=== PATIENT | male | born 1965 | race Caucasian/White ===

== ENCOUNTER 2020-03-31 10:19 | Emergency (ER) | payer OTHER, SELFPAY | END 2020-03-31 10:23 | disposition left against medical advice (07) | PROVIDERS: Emergency Provider Internal Medicine Hematology & Oncology | DX: Z53.21 Procedure and treatment not carried out due to patient leaving prior to being seen by health care provider (principal) | CPT/HCPCS: 99199 ==

== ENCOUNTER 2020-03-31 10:35 | Emergency (ER) | payer OTHER, SELFPAY ==
--- NOTE | ~2020-03-31 | XR_ITS ---
EXAMINATION: XR chest 1V portable DATE: 03/31/2020 12:18 INDICATION: Shortness of breath and cough. TECHNIQUE: A single frontal view of the chest was obtained. COMPARISON: Chest 2 views 07/10/2017, CT abdomen and pelvis 08/27/2016 FINDINGS: The lung volumes are small. There is mild atelectasis at the lung bases. No pleural effusio n or pneumothorax. The heart size is normal. There are prominent paracardial fat pads. Surgical clips in the right upper quadrant are likely from cholecystectomy. IMPRESSION: 1. Small lung volumes with mild atelectasis at the lung bases. Reviewed, dictated and finalized at location A.
--- NOTE | ~2020-03-31 | CT_ITS ---
EXAMINATION: CT abdomen pelvis w con DATE: 03/31/2020 13:26 INDICATION: Abdominal pain. TECHNIQUE: Computed tomography (CT) of the abdomen and pelvis was performed with 100 mL Omnipaque 350 intravenous contrast. Automated exposure control and iterative reconstruction technique were employe d. The dose-length product was 347.09 mGy-cm. COMPARISON: CT abdomen and pelvis 08/27/2016 FINDINGS: The visualized portions of the lung bases demonstrate mild atelectasis. A calcified right h ilar lymph node is consistent with old granulomatous disease. No pleural effusion. The heart size is normal. No pericardial effusion. The liver is normal. There are changes of cholecystectomy. Calcifica tions in the spleen are consistent with old granulomatous disease. The pancreas, adrenal glands, and kidneys are normal. There are bilateral inguinal hernias containing fat. There is diverticulosis of t he colon without evidence of diverticulitis. There are no dilated loops of bowel. The appendix is nor mal. There are no pathologically enlarged lymph nodes. There is no free intraperitoneal fluid. There is mild thoracolumbar spondylosis. IMPRESSION: 1. Bilateral inguinal hernias containing fat. Reviewed, dictated and finalized at location A.
[2020-03-31 11:02] VITALS: BP 149/102; PULSE 95; RESP 22; TEMP 36.6; O2SAT 97
--- NOTE | 2020-03-31 11:40 | ED.GENADULT ---
HPI - General Adult General Chief complaint: Unspecified Stated complaint: bodyaches, sore throat Time Seen by Provider: 03/31/20 11:06 Source: patient Mode of arrival: ambulatory Limitations: no limitations History of Present Illness HPI narrative: This is a 54 year old male that presents to the ER for sore throat x 3 days. Reports generally feeling unwell. Reports a cough and body aches. Reports shortness of breath that is chronic for him due to asthma. Reports history of peptic ulcers and that his stomach has been bothering him for the last couple of months as he has been out of his ulcer medication. Also reports intermittent pain in the right side of his back that radiates into his leg. Denies any recent injury or trauma. Denies fever, chest pain, nausea, vomiting, diarrhea, saddle anesthesia, or bowel/bladder incontinence. Related Data Allergies Allergy/AdvReac Type Severity Reaction Status Date / Time No Known Allergies Allergy Verified 03/31/20 11:16 Review of Systems Review of Systems: Narrative: CONSTITUTIONAL: Denies fever ENT: Reports rhinorrhea, congestion, sore throat CARDIOVASCULAR: Denies chest pain RESPIRATORY: Reports cough and dyspnea. GASTROINTESTINAL: Reports abdominal pain. Denies nausea, vomiting, or diarrhea. GENITOURINARY: Denies dysuria or hematuria. MUSCULOSKELETAL: Reports back pain, joint pain, and myalgia. NEUROLOGIC: Denies numbness, or weakness. All systems reviewed & are unremarkable except as noted in HPI and below PMFSH Past Medical History Medical History (Updated 03/31/20 @ 14:51 by Madeleine Vasquez PA-C) History of asthma History of peptic ulcer disease Family History Family History (Updated 03/19/17 @ 11:22 by DOCTOR UNKNOWN) Father Carcinoma of colon Other Family history of malignant neoplasm Hypertension Social History Social History Smoking status: Never smoker Alcohol intake: current Exam Narrative: Exam Narrative: GENERAL: Well-appearing, well-nourished, and in no acute distress. HEAD: Normocephalic, atraumatic. EYES: EOMI. ENT: Nares clear, no rhinorrhea or epistaxis. Mucous membranes moist. Oropharynx without tonsillar hypertrophy exudate or other lesions. Bilateral TMs pearly maynard non-bulging NECK: Supple. No adenopathy or masses. CHEST: Clear to auscultation. No respiratory distress. No wheezes rales or rhonchi HEART: Regular rate and rhythm. No murmur heard. Normal peripheral pulses. ABDOMEN: Soft, nondistended, normal active bowel sounds. Tender to palpation in the epigastrium, without guarding EXTREMITIES: Normal range of motion. No edema. Strength equal in bilateral lower extremities (5/5) SKIN: Warm, dry, no rash. NEURO: No focal deficits. Alert and oriented x3. PSYCH: Normal mood and affect Course Vital Signs Vital signs: Vital Signs Temperature 97.8 F 03/31/20 11:02 Pulse Rate 95 03/31/20 11:02 Respiratory Rate 22 H 03/31/20 11:02 Blood Pressure 149/102 H 03/31/20 11:02 Pulse Oximetry 97 03/31/20 11:02 Temperature 98.2 F 03/31/20 14:05 Pulse Rate 83 03/31/20 14:05 Respiratory Rate 16 03/31/20 14:05 Blood Pressure 153/90 H 03/31/20 14:05 Pulse Oximetry 99 03/31/20 14:05 Medical Decision Making [place] Narrative Medical decision making narrative: Patient presents to the emergency department with several complaints. Complaining of sore throat, cough, and myalgias. Also was reporting abdominal pain and history of peptic ulcer disease. Also reported right-sided low back/hip pain. Patient's vitals are stable. He is afebrile and nontoxic-appearing. Patient is neurologically intact. CBC and metabolic panel without concerning findings. Lipase is not elevated. CRP and LDH are normal. Lactic acid is not elevated. Strep screen is negative. Chest x-ray is without acute findings. UA without evidence of infection. CT scan of the abdomen and pelvis is without acute findings, shows bilateral inguinal hernias co
[2020-03-31] MEDS: PANTOPRAZOLE SODIUM IV 40 MG VIAL IV PUSH (12:05)
[2020-03-31 12:29] LABS: Basophils Absolute Auto 0.1 K/mm3 (0.0-0.1); Basophils Percent Auto 0.9 % (0.2-1.2); Hematocrit 46.7 % (42.0-52.0); Hemoglobin 15.5 g/dL (14.0-18.0); Immature Granulocyte Absolute 0.07 K/mm3 (0.00-0.031); Immature Granulocyte Percent A 0.9 % (0-0.5); Lymphocytes Absolute Auto 1.58 K/mm3 (0.9-3.2); Lymphocytes Percent Auto 20.5 % (18.3-44.2); Mean Corpuscular HGB Conc 33.2 g/dl (32-36); Mean Corpuscular Hemoglobin 30.7 pg (26-34); Mean Corpuscular Volume 92.5 fl (80-100); Mean Platelet Volume 10.3 fl (7.4-10.4); Monocytes Absolute Auto 0.6 K/mm3 (0.1-0.6); Monocytes Percent Auto 7.2 % (2.6-8.5); Neutrophils Absolute Auto 5.4 K/mm3 (1.3-6.7); Neutrophils Percent Auto 70.5 % (45.5-73.1); Platelet Count Result 267 k/mm3 (150-375); Red Blood Count 5.05 M/mm3 (4.6-6.20); White Blood Count 7.7 K/mm3 (4.5-10.0)
[2020-03-31 12:31] LABS: Add Urine Microscopic? NO; Appearance Urine Clear (Clear); Bilirubin Urine Negative (Negative); Blood Urine Negative (Negative); Color Urine Straw (Yellow); Glucose Urine UA Negative (Negative); Ketones Urine Negative (Negative); Leukocyte Esterase Ur Negative LEU/UL (Negative); Nitrate Urine Negative (Negative); Protein Urine Negative (Negative); Specific Grav Ur 1.013 (1.001-1.035); Urobilinogen Urine Negative mg/dL (<2.0)
[2020-03-31 12:44] LABS: Alanine Aminotransferase 33 U/L (4-50); Albumin Level 4.4 g/dL (3.5-5.1); Alkaline Phosphatase 64 U/L (38-126); Anion Gap 6 mmol/L (8-16); Aspartate Amino Transferase 35 U/L (17-59); Bilirubin,Total 0.6 mg/dL (0.2-1.3); Blood Urea Nitrogen 14 mg/dL (9-20); CRP 1.1 mg/dL (<1.0); Calcium 9.2 mg/dL (8.4-10.2); Carbon Dioxide 30 mmol/L (22-30); Chloride 104 mmol/L (98-107); Estimated CRCL calculation 53 ml/min; Estimated Glomerular Filt Rate > 60; Glucose 151 mg/dL (75-110); Lactate Dehydrogenase 384 U/L (313-618); Lipase 85 U/L (23-300); Potassium 4.2 mmol/L (3.4-5.0); Sodium 140 mmol/L (137-145)
[2020-03-31 13:13] LABS: Lactic Acid Reflex 0.9 mmol/L (0.7-2.1)
[2020-03-31 14:05] VITALS: BP 153/90; PULSE 83; RESP 16; TEMP 36.8; O2SAT 99
[2020-04-01 01:53] LABS: SARS-CoV-2 RNA PCR Negative
== END 2020-03-31 15:12 | disposition home or self-care (01) ==
PROVIDERS: Physician Assistant; Emergency Provider Emergency Medicine
DX: B34.9 Viral infection, unspecified (principal); Z20.828 Contact with and (suspected) exposure to other viral communicable diseases; M25.551 Pain in right hip; K27.9 Peptic ulcer, site unspecified, unspecified as acute or chronic, without hemorrhage or perforation; J45.909 Unspecified asthma, uncomplicated
CPT/HCPCS: 36415; 71045; 74177; 80053; 81003; 82728; 83605; 83615; 83690; 85025; 86140; 87081; 87635; 87880; 96374; 96375; 99284; C9113; C9803; J0131; J3360; Q9967; U0003

== ENCOUNTER 2020-05-22 11:01 | Outpatient (CLI) | payer OTHER, SELFPAY | END 2020-05-22 11:02 | disposition home or self-care (01) | PROVIDERS: Visit Provider Surgery | DX: K40.20 Bilateral inguinal hernia, without obstruction or gangrene, not specified as recurrent (principal) | CPT/HCPCS: 36415; 86850; 86900; 86901 ==

== ENCOUNTER 2020-05-30 00:55 | Outpatient (CLI) | payer OTHER, SELFPAY ==
[2020-05-30 20:51] LABS: SARS-CoV-2 RNA PCR Negative
== END 2020-05-30 00:56 | disposition home or self-care (01) ==
LOC: ANHCOVIDDT 00:55
PROVIDERS: Visit Provider Surgery
DX: Z01.812 Encounter for preprocedural laboratory examination (principal); Z20.828 Contact with and (suspected) exposure to other viral communicable diseases
CPT/HCPCS: 87635; C9803; U0003

== ENCOUNTER 2020-06-01 00:42 | Day surgery (SDC) | payer OTHER, SELFPAY ==
[2020-05-18 15:52] VITALS: BMI 26.9
[2020-06-01] VITALS (8 sets, daily range): BP systolic 102–137; BP diastolic 77–90; PULSE 71–99; RESP 9–18; TEMP 36.3–36.6; O2SAT 92–100
[2020-06-01] MEDS: ACETAMINOPHEN 500 MG TABLET 1000 MG PO (06:28)
[2020-06-01] MEDS: LACTATED RINGERS 1,000 ML 30 ML IV CONT ×2 (06:30→09:39)
[2020-06-01] MEDS: KETOROLAC 15 MG/ML VIAL (*BKC) IV PUSH (06:32)
--- NOTE | 2020-06-01 06:56 | WPDANESEPPF ---
Anes - Initial Pre Proc Eval Procedure: Operation Date: 06/01/20 07:30 Proposed Procedures p Robotic Assisted Inguinal Hernia Repair With Mesh - Sayra Gutierrez MD Date/Time: 06/01/20 06:56 Surgeon: Sayra Gutierrez MD Pre Op Diagnosis: Bilateral Inguinal Hernia Patient Data Age: 54 Gender: M Height: 5 ft Weight: 62.5 kg Last Vital Signs Temp 36.3 C L 06/01/20 06:11 Pulse 78 06/01/20 06:11 Resp 18 06/01/20 06:11 BP 136/90 06/01/20 06:11 Pulse Ox 100 06/01/20 06:11 Allergies Allergy/AdvReac Type Severity Reaction Status Date / Time No Known Allergies Allergy Verified 06/01/20 06:41 Home Medications Medication Instructions Recorded Confirmed Type albuterol sulfate 90 mcg/actuation 1 puff INHALATION Q4H PRN 04/04/20 06/01/20 History aerosol inhaler budesonide-formoterol HFA 160 2 puff INHALATION Q12H 04/04/20 05/18/20 History mcg-4.5 mcg/actuation aerosol inhaler dicyclomine 10 mg PO QID PRN 05/18/20 05/18/20 History omeprazole 40 mg PO DAILY 05/18/20 05/18/20 History sucralfate 1 g PO DAILY 05/18/20 05/18/20 History Patient hx anesthesia problems: none Family hx anesthesia problems: none PMFSH Past Medical History Medical History History of asthma History of peptic ulcer disease Surgical History Surgical History History of laparoscopic cholecystectomy Family History Family History Father Carcinoma of colon Other Family history of malignant neoplasm Hypertension Social History Social History Smoking status: Never smoker Alcohol intake: current Drinks per week: 9 Anes - Eval Final PreProcedure Day of Procedure 06/01/20 06:56 Patient weight: overweight Heart: regular rate and rhythm Lungs: clear to auscultation Airway: Mallampati scale class III Neurological: alert and oriented Last oral intake: >/= 8 hours ASA classification: II Emergent: no Anesthetic plan: proceed Anesthesia type and monitoring: general ETT and standard monitoring Informed Consent: The patient's anesthetic plan and its attendant risks and benefits were discussed with the patient/family/POA. Questions were solicited and answers provided to the satisfaction of the patient/family/POA.
--- NOTE | 2020-06-01 07:03 | PM.IMHP ---
H&P: HPI History of Present Illness Date/Time: 06/01/20 07:03 Chief complaint: Bilateral Inguinal Hernia Narrative: Eusebio Martinez is a 54 year old male that has recently developed pain in his bilateral groins and subsequently noticed inguinal bulges. Symptoms have been intermittent for approximately two years, but have increased in intensity and frequency over the last few months. He denies scrotal swelling or urinary difficulty. He has hx of lap cholecystectomy in 04/2017, but no other abdominal or inguinal surgeries. Review of Systems Review of Systems: All systems reviewed & are unremarkable except as noted in HPI and below PMFSH Past Medical History Medical History History of asthma History of peptic ulcer disease Surgical History Surgical History History of laparoscopic cholecystectomy Family History Family History Father Carcinoma of colon Other Family history of malignant neoplasm Hypertension Social History Social History Smoking status: Never smoker Alcohol intake: current Drinks per week: 9 Meds Home Medications and Allergies Home Medications Medication Instructions Recorded Confirmed Type albuterol sulfate 90 mcg/actuation 1 puff INHALATION Q4H PRN 04/04/20 06/01/20 History aerosol inhaler budesonide-formoterol HFA 160 2 puff INHALATION Q12H 04/04/20 05/18/20 History mcg-4.5 mcg/actuation aerosol inhaler dicyclomine 10 mg PO QID PRN 05/18/20 05/18/20 History omeprazole 40 mg PO DAILY 05/18/20 05/18/20 History sucralfate 1 g PO DAILY 05/18/20 05/18/20 History Allergies Allergy/AdvReac Type Severity Reaction Status Date / Time No Known Allergies Allergy Verified 06/01/20 06:41 Vital Signs Vital Signs - 24 hr 06/01/20 06:11 Temperature 36.3 C L Pulse Rate 78 Respiratory Rate 18 Blood Pressure 136/90 Pulse Oximetry 100 Exam Const: General: cooperative, healthy appearing, no acute distress, alert, awake and Physically active Resp: Effort & Inspection: normal respiratory effort Auscultation: clear to auscultation bilaterally Cardio: Rate: regular rate Rhythm: regular rhythm GI: Inspection: normal to inspection and non-distended GI Palp: Yes Soft to palpation, No Tenderness to palpation present (GI) and No Guarding due to palpation present (GI) Other: bilateral inguinal hernia Assessment and Plan Assessment and plan (1) Inguinal hernia bilateral, non-recurrent: Qualifiers: Obstruction and gangrene presence: without obstruction or gangrene Recurrence: non-recurrent Qualified Code(s): K40.20 - Bilateral inguinal hernia, without obstruction or gangrene, not specified as recurrent Code(s): K40.20 - Bilateral inguinal hernia, without obstruction or gangrene, not specified as recurrent Status: Acute Assessment and Plan: will setup for bilateral inguinal hernia repair c mesh
--- NOTE | 2020-06-01 07:06 | WPDHPUPDATE1 ---
History and Physical Update Update Date/Time: 06/01/20 07:06 History and Physical has been reviewed, including an updated exam of the patient. There are NO changes in the patient's condition. Risks, benefits, and alternatives have been discussed and questions answered. Patient agrees to proceed with procedure.
[2020-06-01] MEDS: ceFAZolin 2 GM/D5W 50 ML 2 GM/50 ML BAG IVPB (07:26)
[2020-06-01] MEDS: BUPIVACAINE/EPINEPHRINE 0.25% 50 ML VIAL 30 ML INFILTRATE (08:03)
--- NOTE | 2020-06-01 10:04 | PM.PROC ---
Procedure Note - Detailed Date of procedure: 06/01/20 Pre-op diagnosis: Bilateral Inguinal Hernia Procedure performed: robotic assisted bilateral inguinal hernia repair with 15 x 10 cm Progrip mesh bilaterally Description of procedure: Patient was brought into the operating room and placed in the supine position. After adequate induction of general anesthesia, the patient was prepped and draped in normal sterile fashion. A time-out was then done to verify the patient's identity, as well as the procedure being performed. Began by making a 8 mm incision in the supraumbilical region, a Veress needle was then placed into the peritoneal cavity. CO2 gas was then insufflated and after adequate pneumoperitoneum was achieved, the Veress needle was removed. I then placed an 8 mm trocar through this incision. I then placed the endoscope through this trocar site and under direct visualization placed 2 further 8 mm ports in the right and left mid abdomen. The [employer] robot was then docked to the 3 trocar sites. I then scrubbed out and went to the robotic console. Upon examining the pelvis, it was noted that the patient had bilateral inguinal hernias. I began by making a preperitoneal flap approximately 6 cm superior to the defect on the right. This flap was carried medially past the umbilical ligaments and laterally to the transversalis. I then began dissection of my medial compartment taking this down to the pubic tubercle. I then began the lateral dissection taking this down to the transversalis fascia. Once these compartments were achieved, I began dissection around the cord structures. It was noted at this point that the patient had a indirect hernia. Patient also had a lipoma the cord. Using careful dissection, was able to reduce the lipoma cord as well separate the indirect hernia off the cord structures. Once this was adequately done, I went ahead and placed a 15 x 10 piece of Pro Manager Access mesh into the abdominal cavity. The mesh was carefully positioned, centering the center of the mesh over the indirect defect. Once this was done, was very satisfied with our tension-free repair. Repeating the procedure on the left, I began by making a preperitoneal flap approximately 6 cm superior to the defect on the left. This flap was carried medially past the umbilical ligaments and laterally to the transversalis. I then began dissection of my medial compartment taking this down to the pubic tubercle. I was able to connect this flap to the repair on the right side. It was noted the patient had a direct hernia on this side. I was able to reduce the hernia and sac from this direct defect. I then began the lateral dissection taking this down to the transversalis fascia. Once these compartments were achieved, I began dissection around the cord structures. It was noted at this point that the patient did not have an indirect hernia. Patient had a lipoma the cord. Using careful dissection, was able to reduce the lipoma cord. Once this was adequately done, I went ahead and placed a 15 x 10 piece of Pro Manager Access mesh into the abdominal cavity. The mesh was carefully positioned, centering the center of the mesh over the indirect defect. Once this was done, was very satisfied with our tension-free repair. I then closed the peritoneal flap with a running 2.0 V Lock suture on both sides. The abdomen was then desufflated, and all ports were removed. All incisions were then closed with the 4.0 monocryl suture. Dermabond was placed on each wound. The patient tolerated the procedure well, was extubated in the operating room postoperatively, and will now be transferred to the recovery room in stable condition. Implants: 15 x 10 progrip mesh x 2 Anesthesia: HALINA Surgeon: Sayra Gutierrez MD Estimated blood loss (mL): 5 Drains: No Packing: No Pathology: none sent Complications: No immediate complications Condition: stable Disposition: PACU Findings: left direct hernia, right indirect hernia
[2020-06-01] MEDS: fentaNYL CITRATE INJ (*CRX) 100 MCG/2 ML VIAL 25 MCG IV PUSH ×4 (10:15→10:28)
[2020-06-01] MEDS: oxyCODONE HCL (*CRX) 5 MG TAB IR PO (11:08)
== END 2020-06-01 11:52 | disposition home or self-care (01) ==
PROVIDERS: Visit Provider Surgery
PROC: 8E0Y4CZ Robotic Assisted Procedure of Lower Extremity, Percutaneous Endoscopic Approach (ICD-10-PCS; CPT 49650; principal; 2020-06-01 07:30)
DX: K40.20 Bilateral inguinal hernia, without obstruction or gangrene, not specified as recurrent (principal); J45.909 Unspecified asthma, uncomplicated; Z87.11 Personal history of peptic ulcer disease
CPT/HCPCS: 49650; S2900; A9270; C1781; J0690; J1100; J1885; J2250; J2405; J2704; J2710; J3010; J7030; J7120

== ENCOUNTER 2020-10-20 07:53 | Emergency (ER) | payer OTHER, SELFPAY ==
--- NOTE | ~2020-10-20 | XR_ITS ---
XR knee LT min 4V 10/20/2020 08:24 INDICATION: Left knee pain PROCEDURE: 4 views left knee COMPARISON: No prior studies for comparison. FINDINGS: Fracture, dislocation or subluxation is not identified. There is prepatellar soft tissue sw elling. No foreign bodies are identified. IMPRESSION: 1: Prepatellar soft tissue swelling. No significant effusion. 2: No acute fracture. Reviewed, dictated and finalized at location B.
[2020-10-20 07:59] VITALS: BP 157/95; PULSE 77; RESP 18; TEMP 36.5; O2SAT 99
[2020-10-20] MEDS: HYDROcodone/acetaminophen (*CRX) 5-325 MG TABLET 1 TAB PO (08:11)
[2020-10-20 08:41] VITALS: TEMP 36.5
[2020-10-20 08:48] LABS: Basophils Absolute Auto 0.1 K/mm3 (0.0-0.1); Basophils Percent Auto 1.2 % (0.2-1.2); Hematocrit 46.8 % (42.0-52.0); Hemoglobin 15.5 g/dL (14.0-18.0); Immature Granulocyte Absolute 0.06 K/mm3 (0.00-0.031); Immature Granulocyte Percent A 0.8 % (0-0.5); Immature Platelet Fraction Pct 6.6 % (0.9-11.2); Lymphocytes Absolute Auto 1.47 K/mm3 (0.9-3.2); Lymphocytes Percent Auto 19.9 % (18.3-44.2); Mean Corpuscular HGB Conc 33.1 g/dl (32-36); Mean Corpuscular Hemoglobin 30.3 pg (26-34); Mean Corpuscular Volume 91.6 fl (80-100); Mean Platelet Volume 10.3 fl (7.4-10.4); Monocytes Absolute Auto 0.7 K/mm3 (0.1-0.6); Monocytes Percent Auto 9.5 % (2.6-8.5); Neutrophils Absolute Auto 5.1 K/mm3 (1.3-6.7); Neutrophils Percent Auto 68.6 % (45.5-73.1); Platelet Count Result 254 k/mm3 (150-375); Red Blood Count 5.11 M/mm3 (4.6-6.20); Red Cell Distribution Width 13.2 % (11.5-14.5); White Blood Count 7.4 K/mm3 (4.5-10.0)
[2020-10-20 08:57] LABS: INR 0.8; Prothrombin Time 11.6 Seconds (11.1-14.7)
[2020-10-20 08:58] LABS: Partial Thromboplastin Time 24.1 SECONDS (22.3-36.8)
[2020-10-20 09:00] VITALS: BP 153/107; PULSE 85; RESP 18; O2SAT 96
[2020-10-20 09:01] LABS: Anion Gap 5 mmol/L (8-16); Blood Urea Nitrogen 17 mg/dL (9-20); Calcium 10.1 mg/dL (8.4-10.2); Carbon Dioxide 32 mmol/L (22-30); Chloride 103 mmol/L (98-107); Estimated CRCL calculation 53 ml/min; Estimated Glomerular Filt Rate > 60; Glucose 95 mg/dL (75-110); Potassium 4.6 mmol/L (3.4-5.0); Sodium 140 mmol/L (137-145)
[2020-10-20 09:51] LABS: Erythrocyte Sedimentation Rate 7 mm/hr (0-20)
[2020-10-20 10:07] VITALS: BP 143/97; PULSE 80; RESP 20; O2SAT 96
--- NOTE | 2020-10-20 10:34 | ED.LOWEXIN ---
HPI - Extremity Injury (Lower) General Chief Complaint: Extremity Injury, Lower Stated Complaint: knee injury Time Seen by Provider: 10/20/20 07:55 Source: RN notes reviewed History of Present Illness HPI Narrative: Patient presents to emergency department from home for left knee swelling. Patient states that he began woke with swelling in the left anterior knee this morning he states pain with bending the knee he denies any known trauma or injury to the knee he denies any fevers or chills or numbness or tingling of the extremities states he has had this happen to previous times in the past 5 years once have not improved with pain medication on his own after week another time he states that fluid was drained and improved after a week Related Data Home Medications Medication Instructions Recorded Confirmed albuterol sulfate 90 mcg/actuation 1 puff INHALATION Q4H PRN 04/04/20 06/14/20 aerosol inhaler budesonide-formoterol HFA 160 2 puff INHALATION Q12H 04/04/20 06/14/20 mcg-4.5 mcg/actuation aerosol inhaler Allergies Allergy/AdvReac Type Severity Reaction Status Date / Time No Known Allergies Allergy Verified 10/20/20 08:02 Review of Systems Review of Systems: Narrative: Gen.: Denies fevers or chills Musculoskeletal: See HPI Neuro: Denies numbness, tingling, weakness Skin: Denies rash Endo: Denies DM PMFSH Past Medical History Medical History History of asthma History of peptic ulcer disease Surgical History Surgical History H/O inguinal hernia repair 06/01/2020: robotic assisted BIH repair with [id number] progrip mesh. History of laparoscopic cholecystectomy Family History Family History Father Carcinoma of colon Other Family history of malignant neoplasm Hypertension Social History Social History Smoking status: Never smoker Alcohol intake: current Drinks per week: 9 Gender identity (if verbalized by the patient): Male Exam Narrative: Exam Narrative: APPEARANCE: No acute distress, nontoxic, resting in bed Eyes: EOMI HEENT: Normocephalic, atraumatic, RESPIRATORY: No respiratory distress MUSCULOSKELETAl: Left anterior knee is tender to palpation with swelling present no ecchymosis or overlying erythema no signs of infection no tenderness of the medial lateral posterior knee pain with flexion greater than 45 degrees no tenderness of the left ankle or hip, dorsalis pedis pulse 2+, neurovascular intact NEURO: Awake and alert. Following commands, speech normal, no focal deficits SKIN:: Warm, dry. Normal Color no rash or lesions Course Course Emergency Course: Reviewed the old records the patient was seen in 2016 for similar at that time he had had prepatella bursitis it had been drained at that time and sent for culture with WBCs seen but no organisms. At that time his knee had been red and warm over the knee Patient is able to get up and ambulate in the ED with no difficulty Discussed with patient results of workup and diagnosis. Discussed need for follow-up with primary care, proper use of medication, and reasons to return to the emergency department. Patient understands and agrees to current treatment plan Vital Signs Vital signs: Vital Signs Temperature 97.7 F 10/20/20 07:59 Pulse Rate 77 10/20/20 07:59 Respiratory Rate 18 10/20/20 07:59 Blood Pressure 157/95 H 10/20/20 07:59 Pulse Oximetry 99 10/20/20 07:59 Temperature 97.7 F 10/20/20 08:41 Pulse Rate 80 10/20/20 10:07 Respiratory Rate 20 10/20/20 10:07 Blood Pressure 143/97 H 10/20/20 10:07 Pulse Oximetry 96 10/20/20 10:07 MDM - Extremity Injury (Lower) MDM Narrative Medical decision making narrative: Patient with prepatellar swelling in ED and there is PERRL isaura
== END 2020-10-20 10:46 | disposition home or self-care (01) ==
PROVIDERS: Emergency Provider Emergency Medicine
DX: M70.42 Prepatellar bursitis, left knee (principal); J45.909 Unspecified asthma, uncomplicated; Z87.11 Personal history of peptic ulcer disease
CPT/HCPCS: 36415; 73564; 80048; 85025; 85055; 85610; 85652; 85730; 86140; 99283; A9270

== ENCOUNTER 2020-12-13 14:48 | Inpatient (IN) | payer OTHER, SELFPAY ==
--- NOTE | ~2020-12-13 | XR_ITS ---
EXAMINATION: XR chest 2V DATE: 12/13/2020 18:14 INDICATION: Cough TECHNIQUE: PA and lateral views of the chest are obtained. COMPARISON: 03/31/2020 FINDINGS: There is mild atelectasis of the lung bases. There is no pleural effusion or pneumothorax. The cardiomediastinal silhouette is normal. There is mild thoracic spondylosis. The nasogastric tube is in the stomach. Cholecystectomy clips are noted. IMPRESSION: 1. Mild atelectasis of the lung bases. Reviewed, dictated and finalized at location A.
--- NOTE | ~2020-12-13 | CT_ITS ---
EXAMINATION: CT abdomen pelvis w con DATE: 12/13/2020 16:59 INDICATION: Lower abdominal pain. Previous hernia repair. TECHNIQUE: Computed tomography (CT) of the abdomen and pelvis was performed without intravenous contr ast. Automated exposure control and iterative reconstruction technique were employed. Exam dose: 454 .72 mGy-cm total exam DLP. COMPARISON: 03/31/2020 CT abdomen pelvis FINDINGS: There are mild patchy infiltrates in the middle lobe and atelectasis at the base of the mid dle lobe, lingula and atelectasis at both lower lobe lung bases. Borderline cardiomegaly. No pericardial or pleural effusion. Very small sliding hiatal hernia. Diffuse hepatic steatosis. No hepatic space-occupying mass lesion is evident. Status post cholecystec chi. No bile duct or pancreatic duct dilatation. No pancreatic mass lesion or calcification. There a re calcified splenic granulomas. No splenomegaly. Normal morphology of the adrenal glands. No renal mass lesion or urinary tract calculus or hydroureteronephrosis. Normal caliber of the abdominal aorta. No intraperitoneal or retroperitoneal or pelvic mass lesion or adenopathy or ascites. Mild prostate enlargement. The urinary bladder is unremarkable. Bilateral fat-containing hernias, right larger than left. There is relative distention of the duodenum and jejunum, with air-fluid levels, which may represent mild adynamic ileus or enteritis, less likely partial small bowel obstruction. The ileum is of normal caliber. Normal appendix. Diverticulosis of sigmoid and descending colon; no CT evidence of diverticulitis. Old healed posterior right 10th rib fracture. No suspicious osteolytic or osteoblastic lesions. IMPRESSION: Bibasilar infiltrate and/atelectasis Borderline cardiomegaly Very small sliding hiatal hernia Mild distention of the duodenum and jejunum, which may be secondary to mild adynamic ileus or enterit is or less likely partial small bowel obstruction Diverticulosis of the left colon; no CT evidence of diverticulitis Hepatic steatosis Status post cholecystectomy Reviewed, dictated and finalized at [facility]. Reviewed, dictated and finalized at location B. IMPRESSION: Bibasilar infiltrate and/atelectasis Borderline cardiomegaly Very small sliding hiatal hernia Mild distention of the duodenum and jejunum, which may be secondary to mild augusto namic ileus or enteritis or less likely partial small bowel obstruction Diverticulosis of the left colon; no CT evidence of diverticulitis Hepatic steatosis Status post cholecystectomy
--- NOTE | ~2020-12-13 | XR_ITS ---
EXAMINATION: XR abdomen obstructive series DATE: 12/14/2020 05:35 INDICATION: Bowel obstruction. TECHNIQUE: Upright and supine views of the abdomen were obtained. COMPARISON: Abdomen radiograph 12/13/2020, CT abdomen and pelvis 12/13/2020 FINDINGS: There are no dilated loops of bowel. There is a small volume of stool in colon. No free int raperitoneal gas. The nasogastric tube tip is in the stomach. Surgical clips in the right upper quadr ant are likely from cholecystectomy. IMPRESSION: 1. Normal bowel gas pattern. Reviewed, dictated and finalized at location A.
--- NOTE | ~2020-12-13 | XR_ITS ---
EXAMINATION: XR sm bowel follow through WS EXAM DATE: 12/14/2020 11:23 INDICATION: Possible small bowel obstruction. IMPRESSION: Abnormal CT, possible small bowel obstruction. TECHNIQUE: Schedule Planning Manager radiograph was acquired. Omnipaque/water soluble solution administered for small rodriguez wel exam performed by radiologist Joe Johnson through nasogastric tube in place on patient arrival. Pulsed dose reduction fluoroscopy was used with fluoroscopic time of 0.1 minutes. The DAP for this p rocedure was 16 Gycm2. A total of 13 images obtained for the exam. Correlation is made to CT from ye ster. FINDINGS: Ileal and jejunal fold patterns are normal. There is no small bowel wall thickening or m ass effect displacing small bowel. There are no intraluminal filling defects identified. There is n o small bowel dilation. Terminal ileum is normal in appearance. Contrast reached the colon between 1 and 1.5 hours. IMPRESSION: Normal small bowel exam. Reviewed, dictated and finalized at location A. IMPRESSION: Abnormal CT, possible small bowel obstruction. TECHNIQUE: Schedule Planning Manager radiograph was acquired. Omnipaque/water soluble solution adm inistered for small bowel exam performed by radiologist Joe Johnson through betty ogastric tube in place on patient arrival. Pulsed dose reduction fluoroscopy w as used with fluoroscopic time of 0.1 minutes. The DAP for this procedure was 16 Gycm2. A total of 13 images obtained for the exam. Correlation is made to C T from yesterday. FINDINGS: Ileal and jejunal fold patterns are normal. There is no small vilma l wall thickening or mass effect displacing small bowel. There are no intralum inal filling defects identified. There is no small bowel dilation. Terminal i leum is normal in appearance. Contrast reached the colon between 1 and 1.5 yonathan rs. IMPRESSION: Normal small bowel exam.
--- NOTE | ~2020-12-13 | XR_ITS ---
EXAMINATION: XR abdomen NG/feed tube insert INDICATION: Nasogastric tube placement TECHNIQUE: Portable AP KUB-NG at 1811 hours COMPARISON: CT from today FINDINGS: The nasogastric tube is in the stomach. Contrast from earlier CT examination partially opac ifies the urinary tract. The bowel gas pattern is nonspecific. IMPRESSION: 1. Nasogastric tube in the stomach. Reviewed, dictated and finalized at location A.
[2020-12-13 15:08] VITALS: BP 111/83; PULSE 101; RESP 19; TEMP 36.3; O2SAT 100
[2020-12-13 15:18] LABS: Basophils Absolute Auto 0.1 K/mm3 (0.0-0.1); Basophils Percent Auto 0.9 % (0.2-1.2); Hematocrit 43.6 % (42.0-52.0); Hemoglobin 14.8 g/dL (14.0-18.0); Immature Granulocyte Absolute 0.12 K/mm3 (0.00-0.031); Immature Granulocyte Percent A 1.3 % (0-0.5); Lymphocytes Absolute Auto 2.28 K/mm3 (0.9-3.2); Lymphocytes Percent Auto 24.4 % (18.3-44.2); Mean Corpuscular HGB Conc 33.9 g/dl (32-36); Mean Corpuscular Hemoglobin 30.6 pg (26-34); Mean Corpuscular Volume 90.1 fl (80-100); Mean Platelet Volume 9.2 fl (7.4-10.4); Monocytes Absolute Auto 0.6 K/mm3 (0.1-0.6); Monocytes Percent Auto 6.7 % (2.6-8.5); Neutrophils Absolute Auto 6.2 K/mm3 (1.3-6.7); Neutrophils Percent Auto 66.7 % (45.5-73.1); Platelet Count Result 300 k/mm3 (150-375); Red Blood Count 4.84 M/mm3 (4.6-6.20); White Blood Count 9.4 K/mm3 (4.5-10.0)
[2020-12-13 15:29] LABS: Alanine Aminotransferase 34 U/L (4-50); Albumin Level 4.6 g/dL (3.5-5.1); Alkaline Phosphatase 57 U/L (38-126); Anion Gap 10 mmol/L (8-16); Aspartate Amino Transferase 37 U/L (17-59); Bilirubin,Total 0.4 mg/dL (0.2-1.3); Blood Urea Nitrogen 11 mg/dL (9-20); Calcium 9.7 mg/dL (8.4-10.2); Carbon Dioxide 23 mmol/L (22-30); Chloride 104 mmol/L (98-107); Estimated CRCL calculation 60 ml/min; Estimated Glomerular Filt Rate > 60; Glucose 68 mg/dL (75-110); Lipase 400 U/L (23-300); Potassium 4.1 mmol/L (3.4-5.0); Sodium 137 mmol/L (137-145)
[2020-12-13] MEDS: SODIUM CHLORIDE 0.9% IV 1,000 ML 999 ML IV CONT (16:07)
[2020-12-13] MEDS: ONDANSETRON INJ 4 MG/2 ML VIAL IV PUSH (16:08)
[2020-12-13] MEDS: MORPHINE SULFATE (*CRX) 4 MG/ML INJ IV PUSH (16:13)
[2020-12-13 16:18] LABS: Add Urine Microscopic? NO; Appearance Urine Clear (Clear); Bilirubin Urine Negative (Negative); Blood Urine Negative (Negative); Color Urine Colorless (Yellow); Glucose Urine UA Negative (Negative); Ketones Urine Negative (Negative); Leukocyte Esterase Ur Negative LEU/UL (Negative); Nitrate Urine Negative (Negative); Protein Urine Negative (Negative); Urobilinogen Urine Negative mg/dL (<2.0)
[2020-12-13 16:29] LABS: Specific Grav Ur 1.003 (1.001-1.035)
--- NOTE | 2020-12-13 17:21 | ED.GENADULT ---
HPI - General Adult General Chief complaint: Abdominal Pain Stated complaint: left hernia pain Time Seen by Provider: 12/13/20 15:26 Source: RN notes reviewed History of Present Illness HPI narrative: Patient presents emergency department from home for abdominal pain. Patient states symptoms been ongoing for the past 4 days and progressively worsening abdomen pain is located diffusely throughout the abdomen with increased pain in the bilateral lower abdomen. Associated with nausea and vomiting. Denies any fevers or chills, chest pain shortness of breath or any other symptoms. States he had a hernia repair last year by Dr. Gutierrez in a call the office and was referred to the ER for further evaluation Related Data Home Medications Medication Instructions Recorded Confirmed albuterol sulfate 90 mcg/actuation 1 puff INHALATION Q4H PRN 04/04/20 06/14/20 aerosol inhaler budesonide-formoterol HFA 160 2 puff INHALATION Q12H 04/04/20 06/14/20 mcg-4.5 mcg/actuation aerosol inhaler Allergies Allergy/AdvReac Type Severity Reaction Status Date / Time No Known Allergies Allergy Verified 12/13/20 15:25 Review of Systems Review of Systems: Narrative: Gen.: Denies fevers or chills ENT: Denies congestion Respiratory: Denies shortness of breath or cough CV: Denies chest pain or palpitations GI: See HPI denies burning, urgency, frequency or hematuria Musculoskeletal: Denies back pain or muscle pain Neuro: Denies numbness, tingling, weakness or focal weakness Skin: Denies rash Except as documented, all other systems reviewed and negative PMFSH Past Medical History Medical History History of asthma History of peptic ulcer disease Surgical History Surgical History H/O inguinal hernia repair 06/01/2020: robotic assisted BIH repair with [id number] progrip mesh. History of laparoscopic cholecystectomy Family History Family History Father Carcinoma of colon Other Family history of malignant neoplasm Hypertension Social History Social History Smoking status: Never smoker Alcohol intake: current Drinks per week: 9 Gender identity (if verbalized by the patient): Male Exam Narrative: Exam Narrative: APPEARANCE: No acute distress, nontoxic, resting in bed HEENT: Normocephalic, atraumatic, OMM RESPIRATORY: No respiratory distress, clear to auscultation bilaterally with no rhonchi wheezing or rales CARDIOVASCULAR: RRR s murmur ABDOMINAL: Mildly distended and soft, nondistended diffusely tender palpation with increased tenderness in right lower quadrant left lower quadrant no rebound or guarding MUSCULOSKELETAl: Moves all extremities. No clubbing, cyanosis or edema. NEURO: Awake and alert. Following commands, speech normal, no focal deficits SKIN:: Warm, dry. Normal Color PSYCHIATRIC: Normal affect/mood Course Course Emergency Course: Called discussed with Dr. Nina presentation work-up at this time recommends admission to his service with to [facility]. Request consult to internal medicine for evaluation of the atelectasis versus pneumonia Discussed with patient a CT scan patient states he has had a mild cough for the past 2 days denies any fevers or chills or shortness of breath. The patient has had both Covid vaccinations with last vaccine given 2 and half weeks ago Discussed with HAO Vasquez for Dr. Dunham regarding consult. At this time with no white count or fever will hold antibiotics obtain 2 view chest x-ray Discussed with patient and family results of workup and diagnosis. Discussed need for admission. Patient and family understand and agree to current treatment plan Vital Signs Vital signs: Vital Signs Temperature 97.3 F L 12/13/20 15:08 Pulse Rate 101 H 12/13/20 15:0
[2020-12-13 18:08] VITALS: BP 153/83; PULSE 98; RESP 22; TEMP 36.9; O2SAT 98
[2020-12-13] MEDS: PANTOPRAZOLE SODIUM IV 40 MG VIAL IV PUSH ×2 (18:32→21:55)
--- NOTE | 2020-12-13 19:15 | ADMGEN ---
This patient, Eusebio Martinez, was admitted to Medical Room 340-01. Patient/family oriented to hospital policies and general routines including ID bracelet, bed and alarms, visiting hours, pain management, procedures, bathroom and other care routines, personal items, smoking policy, room service/diet, and visiting hours. Information on how to activate the Rapid Response Team has been discussed. Patient/Family are encouraged to report perceived risks to care and to ask questions if they do not understand what they are told or what they should do.
[2020-12-13] MEDS: SODIUM CHLORIDE 0.9% IV 1,000 ML 125 ML IV CONT (19:22)
[2020-12-13 20:08] VITALS: BP 150/94; PULSE 85; RESP 18; TEMP 36.1; O2SAT 94
[2020-12-13 20:10] VITALS: BMI 28.1
[2020-12-13 20:22] LABS: Lactic Acid Reflex 1.4 mmol/L (0.7-2.1)
--- NOTE | 2020-12-13 20:34 | PM.IMCN ---
Assessment and Plan Assessment and plan (1) Partial obstruction of small intestine: Code(s): K56.600 - Partial intestinal obstruction, unspecified as to cause Status: Acute (2) History of asthma: Code(s): Z87.09 - Personal history of other diseases of the respiratory system Status: Acute (3) Inguinal hernia bilateral, non-recurrent: Qualifiers: Obstruction and gangrene presence: without obstruction or gangrene Recurrence: non-recurrent Qualified Code(s): K40.20 - Bilateral inguinal hernia, without obstruction or gangrene, not specified as recurrent Code(s): K40.20 - Bilateral inguinal hernia, without obstruction or gangrene, not specified as recurrent Status: Acute (4) Abnormal chest xray: Code(s): R93.89 - Abnormal findings on diagnostic imaging of other specified body structures Status: Acute (5) Atelectasis of both lungs: Code(s): J98.11 - Atelectasis Status: Acute Additional Plan # Abdominal pain/nausea, vomting: CT abdomen with mild distesio of duodenum and jejnum likely secondary to mild adynamic ielus or enteritis. or partial SBO. pain is disproportionately high compared to the ct findings. willl place on PPI prophylaxis for possible duodenitis. will need serial evaluation. NG tube in place for decompression per general surgery. NPO> ivf. and iv pain medicaitons, iv zofran for nausea. lipase is eleated 400 (2-00) potentially be acute pancreatitis. for this also, will continue npo, iv pain mediatois iv hydration. monitor lipase level in am. # Acute migraine attack: will place on iv pain medications. he uses prn otc in the past. # abnormal CXR: cT with atelecatic changes. questionable infiltrate. howver patient with no cough, sob. wbc count is normal. i suspect these are atelectatic changes due to his abdominal problem. will watch off antibiotics and follow the clinical course. mointor wbc count or any fever. # hypoglycemia: mild. monitor accuchecks. # DVT proh: PAS boots. Thank you for the consult.w ill follow along with you. HPI Data of Consult Consult date: 12/13/20 Requesting Physician: Too Nina MD Primary Care Provider: MAIL ORDER BILLER PHYSICIAN Consult Narrative Reason for consult: abormal ches x ray Narrative: Eusebio Martinez is a 55 year old male who presents to the ED with abdominal pain that started since past few days. its more on ht left side of his abdomen. progressively got worse with nausea, no vomiting. he has bee having bm regularly. he reports he does get constiapted but his last BM was this mornin. he had left hernia repair by Dr. Douglass a year aggo. no feer, chills. he has asthma ad gets cough on and off bu not curretly. no sob, chest pian compalinted as well. he is currenlty having migraine attack which he does have history of. he takes otc migraine tablet fro this pain. His CT scan showed: There are mild patchy infiltrates in the middle lobe and atelectasis at the base of the middle lobe, lingula and atelectasis at both lower lobe lung bases. Borderline cardiomegaly. No pericardial or pleural effusion. Very small sliding hiatal hernia. Diffuse hepatic steatosis. No hepatic space-occupying mass lesion is evident. Status post cholecystectomy. No bile duct or pancreatic duct dilatation. No pancreatic mass lesion or calcification. There are calcified splenic granulomas. No splenomegaly. Normal morphology of the adrenal glands. No renal mass lesion or urinary tract calculus or hydroureteronephrosis. Normal caliber of the abdominal aorta. No intraperitoneal or retroperitoneal or pelvic mass lesion or adenopathy or ascites. Mild prostate enlargement. The urinary bladder is unremarkable. Bilateral fat-containing hernias, right larger than left. There is relative distention of the duodenum and jejunum, with air-fluid levels, which may represent mild adynamic ileus or enteritis, less likely partial small bowel obstruction. The ileum is of normal adeline
[2020-12-13] MEDS: MORPHINE SULFATE (*CRX) 2 MG/ML INJ IV PUSH (21:55)
[2020-12-13] MEDS: ACETAMINOPHEN 500 MG TABLET BY MOUTH (22:19)
[2020-12-13] MEDS: PHENOL/SOD PHENO SPRAY CHERRY (*BKC) 1 SPRAY MUCOUS MEM (22:20)
[2020-12-13 22:40] VITALS: PULSE 79; RESP 20; O2SAT 94
[2020-12-14] MEDS: SODIUM CHLORIDE 0.9% IV 1,000 ML 125 ML IV CONT (03:41)
[2020-12-14 05:54] LABS: Basophils Absolute Auto 0.1 K/mm3 (0.0-0.1); Basophils Percent Auto 0.9 % (0.2-1.2); Hematocrit 40.9 % (42.0-52.0); Hemoglobin 13.3 g/dL (14.0-18.0); Immature Granulocyte Absolute 0.07 K/mm3 (0.00-0.031); Immature Granulocyte Percent A 0.9 % (0-0.5); Lymphocytes Absolute Auto 1.75 K/mm3 (0.9-3.2); Lymphocytes Percent Auto 22.9 % (18.3-44.2); Mean Corpuscular HGB Conc 32.5 g/dl (32-36); Mean Corpuscular Hemoglobin 30.4 pg (26-34); Mean Corpuscular Volume 93.6 fl (80-100); Mean Platelet Volume 9.5 fl (7.4-10.4); Monocytes Absolute Auto 0.6 K/mm3 (0.1-0.6); Monocytes Percent Auto 7.9 % (2.6-8.5); Neutrophils Absolute Auto 5.1 K/mm3 (1.3-6.7); Neutrophils Percent Auto 67.4 % (45.5-73.1); Platelet Count Result 239 k/mm3 (150-375); Red Blood Count 4.37 M/mm3 (4.6-6.20); Red Cell Distribution Width 12.4 % (11.5-14.5); White Blood Count 7.6 K/mm3 (4.5-10.0)
[2020-12-14 06:09] LABS: Alanine Aminotransferase 27 U/L (4-50); Albumin Level 3.6 g/dL (3.5-5.1); Alkaline Phosphatase 52 U/L (38-126); Anion Gap 6 mmol/L (8-16); Aspartate Amino Transferase 28 U/L (17-59); Bilirubin,Total 0.5 mg/dL (0.2-1.3); Blood Urea Nitrogen 12 mg/dL (9-20); Calcium 8.4 mg/dL (8.4-10.2); Carbon Dioxide 24 mmol/L (22-30); Chloride 109 mmol/L (98-107); Estimated CRCL calculation 59 ml/min; Estimated Glomerular Filt Rate > 60; Glucose 80 mg/dL (75-110); Potassium 4.2 mmol/L (3.4-5.0); Sodium 139 mmol/L (137-145)
[2020-12-14 06:29] VITALS: BP 150/89; PULSE 79; RESP 17; TEMP 36.1; O2SAT 97
--- NOTE | 2020-12-14 08:59 | PM.IMHP ---
H&P: HPI History of Present Illness Date/Time: 12/14/20 08:59 Chief Complaint: Abdominal pain, nausea, and diarrhea Narrative: This is a 55-year-old male with a history of asthma, who presented to the emergency department with complaints of left-sided abdominal pain x 3-4 days. His surgical history includes a laparoscopic robotic assisted bilateral inguinal hernia repair in May of 2020, and a laparoscopic cholecystectomy. The patient reports having abdominal pain for the last 3-4 days in the left side that was intermittent and mild in nature. He reports having difficulty laying flat due to his nausea. He was not vomiting, but was concerned he would vomit if he were to lie flat. No fever or chills. Due to the persistent abdominal pain, he presented to the emergency department for further evaluation. CT scan of the abdomen and pelvis in the ER showed mild distention of the duodenum and jejunum which may be secondary to a mild adynamic ileus or enteritis, and less likely a partial small-bowel obstruction. Incidentally noted was bibasilar infiltrate and/or atelectasis, borderline cardiomegaly, very small sliding hiatal hernia, diverticulosis, and hepatic steatosis. Labs were unremarkable with a white blood cell count that was normal. Lipase was barely elevated at 400. CRP was 2.0. ED physician contacted our service due to the CT findings of an ileus versus enteritis versus partial small bowel obstruction. An NG tube was placed and the patient was made NPO. He was admitted to our service. Hospitalist was consulted due to the findings of atelectasis versus infiltrates on the CT scan. The patient is now seen on the medical floor. His main complaint is a migraine that he has been experiencing for the past 6-7 hours. He reports that he gets these daily and typically takes [id number] medication. He reports over the last 3-4 days the abdominal pain has been associated with nausea and liquid stools. He reports less than 5 stools daily. He reports difficulty with having a bowel movement, but has been able to go. No changes in the color of his stools and no blood noted. He denies ever having a bowel obstruction in the past. Denies recent travel or anyone else with similar symptoms. This morning, he denies any flatus. He reports his abdominal pain has improved. His last bowel movement was yesterday morning and liquid. No other complaints at this time. Review of Systems Review of Systems: All systems reviewed & are unremarkable except as noted in HPI and below Constitutional: Constitutional: Reports as per HPI, Denies chills, Denies fatigue and Denies fever(s) Eyes: Eyes: Reports no additional eye complaints and Denies change in vision ENT: Reports system reviewed and no additional complaints, except as documented, Reports Normal hearing present and Denies dizziness Cardiovascular: Cardiovascular: Reports no additional cardiovascular complaints, Denies chest pain, Denies leg edema and Denies dyspnea Respiratory: Respiratory: Reports no additional respiratory complaints, Denies cough and Denies dyspnea Gastrointestinal: Gastrointestinal: Reports as per HPI, Reports no additional gastrointestinal complaints, Reports abdominal pain (left sided abd pain ), Denies bloating, Reports change in stool character, Reports diarrhea, Reports nausea and Denies vomiting Genitourinary: Genitourinary: Denies hematuria and Denies dysuria Musculoskeletal: Musculoskeletal: Denies abnormal gait, Denies deformity, Denies joint swelling, Denies numbness and Denies tingling Integumentary/Breasts: Skin/Breast: Denies wounds and Denies jaundice Neurologic: Reports system reviewed and no additional complaints, except as documented, Reports Normal hearing present, Denies abnormal gait, Denies dizziness, Denies focal weakness, Denies numbness and Denies tingling Psychiatric: Psychiatric: Denies anxiety and Denies depression [facility] Past Medical History Medical Histo
[2020-12-14] MEDS: ALBUTEROL SULFATE (*SP) AEROSOL 1 PUFF INHALATION (09:17)
[2020-12-14] MEDS: PANTOPRAZOLE SODIUM IV 40 MG VIAL IV PUSH ×2 (09:18→20:46)
--- NOTE | 2020-12-14 10:17 | P.PNIM_ITS ---
Progress Note: A&P Assessment and Plan (1) Partial obstruction of small intestine: Code(s): K56.600 - Partial intestinal obstruction, unspecified as to cause Status: Acute Assessment and Plan: * Ct noted: Mild distention of the duodenum and jejunum, which may be secondary to mild adynamic ileus or enteritis or less likely partial small bowel obstruction * NG Placed to LIMS: clear stomach contents * General surgery consulted thank you for your recommendations * Small bowel follow through ordered * NPO diet for now * Morphine 2mg IV Q4hr and tylenol 1000mg IV Q6hr PRN for pain * Hydration: NS 125ml/hr IV * Protonix 40mg IV Q12hr * Zofran 4mg IV Q4hr PRN for nausea * Trend labs and vital signs for signs of infection (2) History of asthma: Code(s): Z87.09 - Personal history of other diseases of the respiratory system Status: Acute Assessment and Plan: * History of asthma * Continue Symbicort 2 puff q 12 and Albuterol 1 puff q4hr PRN * Trend lung sounds (3) Inguinal hernia bilateral, non-recurrent: Qualifiers: Obstruction and gangrene presence: without obstruction or gangrene Recurrence: non-recurrent Qualified Code(s): K40.20 - Bilateral inguinal hernia, without obstruction or gangrene, not specified as recurrent Code(s): K40.20 - Bilateral inguinal hernia, without obstruction or gangrene, not specified as recurrent Status: Acute Assessment and Plan: * Hernia repair last year by Dr. Gutierrez * No palpable hernia noted on exam * CT shows a small inguinal hernia (4) Migraine: Qualifiers: Migraine type: unspecified Status migrainosus presence: without status migrainosus Intractability: not intractable Qualified Code(s): G43.909 - Migraine, unspecified, not intractable, without status migrainosus Code(s): G43.909 - Migraine, unspecified, not intractable, without status migrainosus Status: Acute Assessment and Plan: * Patient complains of headache * He contributes to the morphine * Tylenol IV 100mg ordered * Trend pain * adjust medications as needed. (5) Atelectasis of both lungs: Code(s): J98.11 - Atelectasis Status: Acute Assessment and Plan: Chest xray shows: Mild atelectasis of the lung bases * Chest ct shows possible infiltrate * No complaints of shortness of breath * Patient does have a cough, but nothing that is not normal per the patient * WBC 7.6, temp 36.1C * Trend WBC, and temperatures * Blood cultures pending * Will continue to hold antibiotics for now. (6) Abnormal chest xray: Code(s): R93.89 - Abnormal findings on diagnostic imaging of other specified body structures Status: Acute Assessment and Plan: * Chest xray shows: Mild atelectasis of the lung bases * Chest ct shows possible infiltrate * No complaints of shortness of breath * Patient does have a cough, but nothing that is not normal per the patient * WBC 7.6, temp 36.1C * Trend WBC, and temperatures * Blood cultures pending * Will continue to hold antibiotics for now. Time Spent With Patient Time with patient: 25 - 35 minutes Subjective Date/time seen: 12/14/20 10:17 patient is a 55-year-old male with past medical history of asthma and peptic ulcer disease who to presented to the ED last night for evaluation of severe abdominal pain. X-ray and CT showed possible bowel obstr
--- NOTE | 2020-12-14 10:17 | PM.IMPN ---
Progress Note: A&P Assessment and Plan (1) Partial obstruction of small intestine: Code(s): K56.600 - Partial intestinal obstruction, unspecified as to cause Status: Acute Assessment and Plan: Ct noted: Mild distention of the duodenum and jejunum, which may be secondary to mild adynamic ileus or enteritis or less likely partial small bowel obstruction NG Placed to LIMS: clear stomach contents General surgery consulted thank you for your recommendations Small bowel follow through ordered NPO diet for now Morphine 2mg IV Q4hr and tylenol 1000mg IV Q6hr PRN for pain Hydration: NS 125ml/hr IV Protonix 40mg IV Q12hr Zofran 4mg IV Q4hr PRN for nausea Trend labs and vital signs for signs of infection (2) History of asthma: Code(s): Z87.09 - Personal history of other diseases of the respiratory system Status: Acute Assessment and Plan: History of asthma Continue Symbicort 2 puff q 12 and Albuterol 1 puff q4hr PRN Trend lung sounds (3) Inguinal hernia bilateral, non-recurrent: Qualifiers: Obstruction and gangrene presence: without obstruction or gangrene Recurrence: non-recurrent Qualified Code(s): K40.20 - Bilateral inguinal hernia, without obstruction or gangrene, not specified as recurrent Code(s): K40.20 - Bilateral inguinal hernia, without obstruction or gangrene, not specified as recurrent Status: Acute Assessment and Plan: Hernia repair last year by Dr. Gutierrez No palpable hernia noted on exam CT shows a small inguinal hernia (4) Migraine: Qualifiers: Migraine type: unspecified Status migrainosus presence: without status migrainosus Intractability: not intractable Qualified Code(s): G43.909 - Migraine, unspecified, not intractable, without status migrainosus Code(s): G43.909 - Migraine, unspecified, not intractable, without status migrainosus Status: Acute Assessment and Plan: Patient complains of headache He contributes to the morphine Tylenol IV 100mg ordered Trend pain adjust medications as needed. (5) Atelectasis of both lungs: Code(s): J98.11 - Atelectasis Status: Acute Assessment and Plan: Chest xray shows: Mild atelectasis of the lung bases Chest ct shows possible infiltrate No complaints of shortness of breath Patient does have a cough, but nothing that is not normal per the patient WBC 7.6, temp 36.1C Trend WBC, and temperatures Blood cultures pending Will continue to hold antibiotics for now. (6) Abnormal chest xray: Code(s): R93.89 - Abnormal findings on diagnostic imaging of other specified body structures Status: Acute Assessment and Plan: Chest xray shows: Mild atelectasis of the lung bases Chest ct shows possible infiltrate No complaints of shortness of breath Patient does have a cough, but nothing that is not normal per the patient WBC 7.6, temp 36.1C Trend WBC, and temperatures Blood cultures pending Will continue to hold antibiotics for now. Time Spent With Patient Time with patient: 25 - 35 minutes Subjective Date/time seen: 12/14/20 10:17 patient is a 55-year-old male with past medical history of asthma and peptic ulcer disease who to presented to the ED last night for evaluation of severe abdominal pain. X-ray and CT showed possible bowel obstruction. today patient seems a little agitated and would like to know when General surgery was coming to see him. General surgery is right behind me. Explained to patient the plan of care a bowel follow-through to see if the patient has an obstruction. Patient does have a history of hernia repair which could contribute to the questionable obstruction. Patient states that he is having severe back pain which he rates a 10/10 which is contributing to the lack of movement due to the NG tube. Explained the patient t
[2020-12-14 11:43] VITALS: O2SAT 94
[2020-12-14 13:51] VITALS: BP 148/82; PULSE 93; RESP 16; TEMP 35.8; O2SAT 96
[2020-12-14] MEDS: HYDROcodone/acetaminophen (*CRX) 5-325 MG TABLET 1 TAB PO (15:28)
[2020-12-14 21:38] VITALS: BP 109/65; PULSE 75; RESP 18; TEMP 36.7; O2SAT 97
[2020-12-15] MEDS: SODIUM CHLORIDE 0.9% IV 1,000 ML 75 ML IV CONT (00:23)
[2020-12-15 06:21] LABS: Hematocrit 46.5 % (42.0-52.0); Hemoglobin 15.1 g/dL (14.0-18.0); Mean Corpuscular HGB Conc 32.5 g/dl (32-36); Mean Corpuscular Hemoglobin 30.3 pg (26-34); Mean Corpuscular Volume 93.2 fl (80-100); Mean Platelet Volume 9.8 fl (7.4-10.4); Platelet Count Result 267 k/mm3 (150-375); Red Blood Count 4.99 M/mm3 (4.6-6.20); Red Cell Distribution Width 12.3 % (11.5-14.5)
[2020-12-15 06:36] LABS: Anion Gap 7 mmol/L (8-16); Blood Urea Nitrogen 8 mg/dL (9-20); Calcium 9.1 mg/dL (8.4-10.2); Carbon Dioxide 27 mmol/L (22-30); Chloride 106 mmol/L (98-107); Estimated CRCL calculation 59 ml/min; Estimated Glomerular Filt Rate > 60; Glucose 99 mg/dL (75-110); Potassium 4.1 mmol/L (3.4-5.0); Sodium 140 mmol/L (137-145)
--- NOTE | 2020-12-15 07:58 | PM.DS ---
DS: Admitting Diagnosis Admitting Diagnosis Admitting Diagnosis: Gastroenteritis versus ileus DS: Discharge Diagnosis Discharge Diagnosis (1) Partial obstruction of small intestine: Onset Date: Unknown Code(s): K56.600 - Partial intestinal obstruction, unspecified as to cause Status: Acute Assessment and Plan: Patient has symptoms for couple days before he came in. Please see history and physical. Patient's ileus resolved fairly quickly with an NG tube and he had a small-bowel follow-through during this admission which showed no obstruction and dye within the colon within our half. This is normal transit time period there are no abnormal loops of small bowel on the small-bowel follow-through. Patient's diet was gradually advanced and he will go on a low-fiber diet for 1 week following admission and then return to his calorie limited diet to try to lose weight. Goal weight will be normal BMI between 20 and 25. (2) Migraine: Onset Date: Unknown Qualifiers: Intractability: not intractable Migraine type: unspecified Status migrainosus presence: without status migrainosus Qualified Code(s): G43.909 - Migraine, unspecified, not intractable, without status migrainosus Code(s): G43.909 - Migraine, unspecified, not intractable, without status migrainosus Status: Acute Assessment and Plan: Apparently patient periodically has these. He has medication at home for p.r.n. use. He will follow up with his PCP if this continues to be a problem. (3) History of asthma: Onset Date: Unknown Code(s): Z87.09 - Personal history of other diseases of the respiratory system Status: Acute Assessment and Plan: Patient has a history of this. He has appropriate inhalers to help with this. (4) BMI 28.0-28.9,adult: Onset Date: Unknown Code(s): Z68.28 - Body mass index [BMI] 28.0-28.9, adult Status: Acute Assessment and Plan: Patient states he realized he was a little bit overweight and he has been trying to start a walking program and he will be watching his calories after he goes back to his normal diet. (5) Atelectasis of both lungs: Onset Date: ~11/2020 Code(s): J98.11 - Atelectasis Status: Acute Assessment and Plan: This was noted on the patient's CT scan and chest x-ray. Incentive spirometry was ordered and used during admission. In the machine was sent home with the patient use encouraged to use this for about another 2-3 days. DS: Summary Hospital Course Reason for hospitalization: Nausea and vomiting, suspected ileus or gastroenteritis Hospital Course: Patient had uneventful hospital course. He had an NG tube overnight after admission. Since his abdominal film the day following admission showed no dilated loops of small bowel we proceeded to a small-bowel follow-through is Gastrografin study. Dye went through to the colon within an hour half which is normal transit time. There were no dilated loops of small bowel on the study. Therefore the NG tube was removed and he was started on a clear liquid diet. The day following his admission he was raised to a full liquid diet for breakfast and then tolerated a low-fiber diet at lunch. Therefore he is discharged at this time with plans for follow-up as needed. Had trouble with a migraine during his admission see below. We appreciate evaluation of the medical service during his admission. Status at Discharge Functional status at discharge: independent ambulation Overall status at discharge: patient is back to baseline Time Spent with Patient Time attestation: Total time spent providing and/or coordinating discharge services: Time spent: Less than 30 minutes Specific discharge activities: Dietitian consult was obtained so that he could have information on a low-fiber diet that he will follow for the 1st week after discharge. He will then resume a calorie limited diet to try to l
[2020-12-15 08:30] VITALS: BP 162/98; PULSE 87; RESP 18; TEMP 36.3; O2SAT 98
--- NOTE | 2020-12-15 09:39 | P.PNIM_ITS ---
Progress Note: A&P Assessment and Plan (1) Partial obstruction of small intestine: Onset Date: Unknown Code(s): K56.600 - Partial intestinal obstruction, unspecified as to cause Status: Acute Assessment and Plan: * Ct noted: Mild distention of the duodenum and jejunum, which may be secondary to mild adynamic ileus or enteritis or less likely partial small bowel obstr uction * NG Placed to LIMS: clear stomach contents * General surgery to manage and to discharge * Small bowel follow through showed no obstruction * Diet per surgery (2) History of asthma: Onset Date: Unknown Code(s): Z87.09 - Personal history of other diseases of the respiratory system Status: Acute Assessment and Plan: * History of asthma * Continue Symbicort 2 puff q 12 and Albuterol 1 puff q4hr PRN (3) Inguinal hernia bilateral, non-recurrent: Qualifiers: Obstruction and gangrene presence: without obstruction or gangrene Recurrence: non-recurrent Qualified Code(s): K40.20 - Bilateral inguinal hernia, without obstruction or gangrene, not specified as recurrent Code(s): K40.20 - Bilateral inguinal hernia, without obstruction or gangrene, not specified as recurrent Status: Resolved Assessment and Plan: * Hernia repair last year by Dr. Gutierrez * No palpable hernia noted on exam * CT shows a small inguinal hernia (4) Migraine: Onset Date: Unknown Qualifiers: Migraine type: unspecified Status migrainosus presence: without status migrainosus Intractability: not intractable Qualified Code(s): G43.909 - Migraine, unspecified, not intractable, without status migrainosus Code(s): G43.909 - Migraine, unspecified, not intractable, without status migrainosus Status: Acute Assessment and Plan: * Patient complains of headache * He contributes to the morphine * [place] added in the afternoon * Trend pain * adjust medications as needed. (5) Atelectasis of both lungs: Onset Date: ~11/2020 Code(s): J98.11 - Atelectasis Status: Acute Assessment and Plan: Chest xray shows: Mild atelectasis of the lung bases * Chest ct shows possible infiltrate * No complaints of shortness of breath * Patient does have a cough, but nothing that is not normal per the patient * WBC 8.0, temp 36.3C * Trend WBC, and temperatures * Blood cultures pending * Will continue to hold antibiotics for now. (6) Abnormal chest xray: Code(s): R93.89 - Abnormal findings on diagnostic imaging of other specified body structures Status: Acute Assessment and Plan: * Chest xray shows: Mild atelectasis of the lung bases * Chest ct shows possible infiltrate * No complaints of shortness of breath * Patient does have a cough, but nothing that is not normal per the patient Time Spent With Patient Time with patient: 15 - 25 minutes Subjective Date/time seen: 12/15/20 09:39 patient is a 55-year-old male with past medical history of asthma and peptic ulcer disease who to presented to the ED last night for evaluation of severe abdominal pain. X-ray and CT showed possible bowel obstruction. Further x- rays show that there was no bowel obstruction present. went to see the patient this morning patient was walking in the halls requesting to further his diet. Instructed patient the General surgery was the admitting provider. Bjorn
--- NOTE | 2020-12-15 09:39 | PM.IMPN ---
Progress Note: A&P Assessment and Plan (1) Partial obstruction of small intestine: Onset Date: Unknown Code(s): K56.600 - Partial intestinal obstruction, unspecified as to cause Status: Acute Assessment and Plan: Ct noted: Mild distention of the duodenum and jejunum, which may be secondary to mild adynamic ileus or enteritis or less likely partial small bowel obstruction NG Placed to LIMS: clear stomach contents General surgery to manage and to discharge Small bowel follow through showed no obstruction Diet per surgery (2) History of asthma: Onset Date: Unknown Code(s): Z87.09 - Personal history of other diseases of the respiratory system Status: Acute Assessment and Plan: History of asthma Continue Symbicort 2 puff q 12 and Albuterol 1 puff q4hr PRN (3) Inguinal hernia bilateral, non-recurrent: Qualifiers: Obstruction and gangrene presence: without obstruction or gangrene Recurrence: non-recurrent Qualified Code(s): K40.20 - Bilateral inguinal hernia, without obstruction or gangrene, not specified as recurrent Code(s): K40.20 - Bilateral inguinal hernia, without obstruction or gangrene, not specified as recurrent Status: Resolved Assessment and Plan: Hernia repair last year by Dr. Gutierrez No palpable hernia noted on exam CT shows a small inguinal hernia (4) Migraine: Onset Date: Unknown Qualifiers: Migraine type: unspecified Status migrainosus presence: without status migrainosus Intractability: not intractable Qualified Code(s): G43.909 - Migraine, unspecified, not intractable, without status migrainosus Code(s): G43.909 - Migraine, unspecified, not intractable, without status migrainosus Status: Acute Assessment and Plan: Patient complains of headache He contributes to the morphine [place] added in the afternoon Trend pain adjust medications as needed. (5) Atelectasis of both lungs: Onset Date: ~11/2020 Code(s): J98.11 - Atelectasis Status: Acute Assessment and Plan: Chest xray shows: Mild atelectasis of the lung bases Chest ct shows possible infiltrate No complaints of shortness of breath Patient does have a cough, but nothing that is not normal per the patient WBC 8.0, temp 36.3C Trend WBC, and temperatures Blood cultures pending Will continue to hold antibiotics for now. (6) Abnormal chest xray: Code(s): R93.89 - Abnormal findings on diagnostic imaging of other specified body structures Status: Acute Assessment and Plan: Chest xray shows: Mild atelectasis of the lung bases Chest ct shows possible infiltrate No complaints of shortness of breath Patient does have a cough, but nothing that is not normal per the patient Time Spent With Patient Time with patient: 15 - 25 minutes Subjective Date/time seen: 12/15/20 09:39 patient is a 55-year-old male with past medical history of asthma and peptic ulcer disease who to presented to the ED last night for evaluation of severe abdominal pain. X-ray and CT showed possible bowel obstruction. Further x-rays show that there was no bowel obstruction present. went to see the patient this morning patient was walking in the halls requesting to further his diet. Instructed patient the General surgery was the admitting provider. Patient stated that he was feeling a lot better. Patient denied headache stating that that was better. He did have concern about his asthma however he said that that is controlled with albuterol. Patient did state that he he travels back and forth from [place] to here to many times the year. He also stated that it was hard for him to get his medications due to the cost however he does get his medications. patient also stated this is pretty much normal for him. Instructed him to follow-up with
--- NOTE | 2020-12-15 12:49 | PCNSR ---
On 12/15/20, the student,Lea Moy, provided care and completed [facility] documentation on this patient. I have reviewed the student's documentation and agree with the findings.
== END 2020-12-15 11:26 | disposition home or self-care (01) | DRG 247 ==
LOC: ANHED 15:40 → ANH3MED 18:29
PROVIDERS: Nurse Practitioner; Admitting Provider Surgery; Emergency Provider Emergency Medicine; Visit Provider Surgery
DX: K56.600 Partial intestinal obstruction, unspecified as to cause (principal); J98.11 Atelectasis; J45.909 Unspecified asthma, uncomplicated; G43.909 Migraine, unspecified, not intractable, without status migrainosus; K40.20 Bilateral inguinal hernia, without obstruction or gangrene, not specified as recurrent; R93.89 Abnormal findings on diagnostic imaging of other specified body structures; E16.2 Hypoglycemia, unspecified; E66.3 Overweight; Z68.28 Body mass index [BMI] 28.0-28.9, adult; Z79.899 Other long term (current) drug therapy; Z87.11 Personal history of peptic ulcer disease
CPT/HCPCS: 36415; 71046; 74019; 74177; 74250; 80048; 80053; 81003; 83605; 83690; 85025; 85027; 87040; 94640; 96361; 96374; 96375; 96376; 99285; A9270; C9113; G0378; G0379; J0131; J2270; J2405; J7030; Q9967

== ENCOUNTER 2022-09-25 07:08 | Emergency (ER) | payer OTHER, SELFPAY ==
[2022-09-25 07:12] VITALS: BP 158/98; PULSE 88; RESP 18; TEMP 36.4; O2SAT 98
--- NOTE | 2022-09-25 07:54 | ED.GENADULT ---
HPI - General Adult General Chief complaint: Back Pain/Injury Stated complaint: BACK PAIN Time Seen by Provider: 09/25/22 07:09 History of Present Illness HPI narrative: 56-year-old male presenting to the emergency department for evaluation of right lower back pain. Patient states he was doing some lifting yesterday when he felt acute onset of right posterior back pain. Patient denies any associated numbness or weakness. Patient did not take anything for the pain control. Patient denies any prior history of kidney stone. Patient denies any hematuria. Patient does have a previous history of and gastric ulcers. Related Data Home Medications Medication Instructions Recorded Confirmed albuterol sulfate 90 mcg/actuation 1 puff inhalation Q4H PRN 04/04/20 03/05/22 aerosol inhaler Shortness Of Breath budesonide-formoterol HFA 160 2 puff inhalation Q12H 04/04/20 03/05/22 mcg-4.5 mcg/actuation aerosol inhaler (Symbicort) Tylenol PM 500 mg BYMOUTH DAILY PRN Headache 12/13/20 03/05/22 Allergies Allergy/AdvReac Type Severity Reaction Status Date / Time No Known Allergies Allergy Verified 09/25/22 07:22 Review of Systems Review of Systems: CONSTITUTIONAL: Denies fever, chills, or sweats. EYES: Denies visual changes, redness, or discharge. ENT: Denies rhinorrhea, congestion, sore throat, or otalgia. CARDIOVASCULAR: Denies chest pain, palpitations, or edema. RESPIRATORY: Denies cough or dyspnea. GASTROINTESTINAL: Denies abdominal pain, nausea, vomiting, or diarrhea. GENITOURINARY: Denies dysuria or hematuria. SKIN: Denies rash or itching. MUSCULOSKELETAL: See HPI NEUROLOGIC: Denies headache, numbness, or weakness. [facility] Past Medical History Medical History (Updated 09/25/22 @ 09:06 by Johnson Grier MD) History of asthma (Unknown) History of peptic ulcer disease Stroke Surgical History Surgical History (Updated 03/05/22 @ 13:17 by Rachel Montez CMA) H/O inguinal hernia repair 06/01/2020: robotic assisted BIH repair with [id number] progrip mesh. History of laparoscopic cholecystectomy Family History Family History Father Carcinoma of colon Other Family history of malignant neoplasm Hypertension Social History Social History Smoking status: Never smoker Alcohol intake: current Drinks per week: 14 Substance use: never Living arrangements: alone Additional living arrangements comments: Plans to move to [place] Occupation/Education: unemployed Gender identity (if verbalized by the patient): Male Spiritual care concerns: No Exam Narrative: APPEARANCE: Well appearing, no pain, no distress, well-nourished. HEAD: normocephalic, atraumatic. EYES: PERRLA/EOMI, conjunctivae clear. NOSE: Normal no drainage NECK: Supple. No adenopathy, no masses. RESPIRATORY: Airway patent, respirations nonlabored. Clear to auscultation bilaterally, no rales, rhonchi, wheezing. CARDIOVASCULAR: Regular rate and rhythm without murmurs rubs or gallops. ABDOMINAL: Soft, nontender, nondistended, normal bowel sounds. Some left CVA tenderness to palpation, mild left lower quadrant tenderness to palpation-patient reports this is not new MUSCULOSKELETAL: Moves all extremities. Strength/ROM intact, No edema, No calf tenderness. NEURO: Alert. Cranial nerves II through XII intact. Grossly intact SKIN: Warm, dry. Normal Color Course Course Emergency Course: 56-year-old male with right back pain. UA was ordered to evaluate for hematuria for possibility of kidney stone. UA was negative. Patient states he is still having some right lower quadrant pain but declined any additional work-up for this. Patient states this is chronic for him. Patient declined any Flexeril for pain control. Patient states he will have close follow-up with his primary care physician. Vital Signs Vital signs:
[2022-09-25 08:10] LABS: Appearance Urine Clear (Clear); Bilirubin Urine Negative (Negative); Blood Urine Negative (Negative); Color Urine Yellow (Yellow); Glucose Urine UA Negative (Negative); Ketones Urine Negative (Negative); Leukocyte Esterase Ur Negative LEU/UL (Negative); Nitrate Urine Negative (Negative); Protein Urine Negative (Negative); Specific Grav Ur 1.007 (1.001-1.035); Urobilinogen Urine 0.2 mg/dL (<2.0)
[2022-09-25 08:46] VITALS: BP 134/76; PULSE 82; RESP 18; O2SAT 99
[2022-09-25 08:46] LABS: Add Urine Microscopic? NO
[2022-09-25 09:23] VITALS: BP 132/70; PULSE 88; RESP 16; O2SAT 98
== END 2022-09-25 09:24 | disposition home or self-care (01) ==
PROVIDERS: Emergency Provider Emergency Medicine
DX: M54.50 Low back pain, unspecified (principal); J45.909 Unspecified asthma, uncomplicated; Z86.73 Personal history of transient ischemic attack (TIA), and cerebral infarction without residual deficits
CPT/HCPCS: 81003; 99283

== ENCOUNTER 2023-07-07 05:46 | Emergency (ER) | payer OTHER, SELFPAY ==
--- NOTE | ~2023-07-07 | XR_ITS ---
Left Knee Technique: AP, lateral, and sunrise views were obtained. Clinical History: Pain COMPARISON: 10/20/2020 Findings: No fracture or dislocation is seen. Osseous alignment is anatomic. Joint spaces are preserv ed without degenerative or erosive change. There is suggestion of ill definition of the distal queta ceps tendon and possible joint effusion. Impression: No osseous or articular abnormality. Poor definition of the distal quadriceps tendon with possible joint effusion. Correlate clinically fo r distal quadriceps tendon injury. If this is of clinical concern, consider follow-up MR to further e valuate. Reviewed, dictated and finalized at location . [employer] Impression: No osseous or articular abnormality. Poor definition of the distal quadriceps tendon with possible joint effusion. C orrelate clinically for distal quadriceps tendon injury. If this is of clinical concern, consider follow-up MR to further evaluate.
[2023-07-07 05:45] VITALS: BP 148/94; PULSE 95; RESP 20; TEMP 36.9; O2SAT 98
[2023-07-07] MEDS: ACETAMINOPHEN 500 MG TABLET 1000 MG PO (06:09)
[2023-07-07] MEDS: KETOROLAC 30 MG/ML VIAL (*BKC) IM (06:10)
--- NOTE | 2023-07-07 06:22 | ED.EXTPRO ---
HPI - Extremity Problem General Chief complaint: Extremity Problem,Nontraumatic Stated complaint: leg pain History of Present Illness HPI Narrative: This is a 57-year-old male, with history of hypertension, brought in by EMS for left knee pain. The patient states he has had episodes of left knee pain with prolonged walking. This morning, he developed 6/10 knee pain, radiating to the left foreleg. He denies fevers, chills or recent trauma. He states pain in the foreleg has since resolved. Related Data Home Medications Medication Instructions Recorded Confirmed albuterol sulfate 90 mcg/actuation 1 puff inhalation Q4H PRN 04/04/20 03/05/22 aerosol inhaler Shortness Of Breath budesonide-formoterol HFA 160 2 puff inhalation Q12H 04/04/20 03/05/22 mcg-4.5 mcg/actuation aerosol inhaler (Symbicort) Tylenol PM 500 mg BYMOUTH DAILY PRN Headache 12/13/20 03/05/22 Allergies Allergy/AdvReac Type Severity Reaction Status Date / Time No Known Allergies Allergy Verified 09/25/22 07:22 Review of Systems Review of Systems: CONSTITUTIONAL: Denies fever, chills, or sweats. CARDIOVASCULAR: Denies chest pain, palpitations, or edema. RESPIRATORY: Denies cough or dyspnea. GENITOURINARY: Denies dysuria or hematuria. MUSCULOSKELETAL: Left knee pain Denies back pain, or myalgia. NEUROLOGIC: Denies headache, numbness, dizziness, or weakness. PSYCHIATRIC: Denies anxiety or depression. [facility] Past Medical History Medical History (Updated 07/07/23 @ 06:25 by Misael Sage MD) Chronic cholecystitis without calculus GERD with esophagitis History of asthma (Unknown) History of peptic ulcer disease Stroke Surgical History Surgical History (Updated 07/07/23 @ 06:23 by Misael Sage MD) H/O inguinal hernia repair 06/01/2020: robotic assisted BIH repair with [id number] progrip mesh. History of laparoscopic cholecystectomy Hx of cervical discectomy Family History Family History Father Carcinoma of colon Other Family history of malignant neoplasm Hypertension Social History Social History Smoking status: Never smoker Alcohol intake: current Drinks per week: 14 Substance use: never Living arrangements: alone Additional living arrangements comments: Plans to move to [place] Occupation/Education: unemployed Gender identity (if verbalized by the patient): Male Spiritual care concerns: No Exam Narrative: GENERAL: Well-developed, well-nourished, and in no acute distress. HEAD: Normocephalic, atraumatic. EYES: PERRLA and EOMI. CHEST: Clear to auscultation. No respiratory distress. No wheezes rales or rhonchi HEART: Regular rate and rhythm. No murmur heard. Normal peripheral pulses. EXTREMITIES: Mild swelling without erythema of the left knee compared to the right. Tender to palpation at the distal aspect of the left knee. Normal range of motion. No edema. SKIN: Warm, dry, no rash. NEURO: Alert and oriented x3. No focal deficit. Moving all 4 limbs spontaneously PSYCH: Normal mood and affect. Course Course Emergency Course: 06:57 - On re-evaluation, patient states his pain is mildly improved. X-ray is not concerning for fracture though shows possible joint effusion concerning for quadriceps tear, the patient is able to elevate the leg at the hip. On re-evaluation, the patient is eager to be discharged. Discussed return and emergency precautions including signs/symptoms of septic arthritis and neurovascular compromise. The patient voiced understanding and is comfortable with the plan. All questions answered to his satisfaction. Vital Signs Vital signs: Vital Signs Temperature 98.4 F 07/07/23 05:45 Pulse Rate 95 07/07/23 05:45 Respiratory Rate 20 07/07/23 05:45 Blood Pressure 148/94 H 07/07/23 05:45 Pulse Oximetry 98 07/07/23 05:45 Temperature
[2023-07-07 07:19] VITALS: BP 155/95; PULSE 79; RESP 18; O2SAT 99
== END 2023-07-07 07:19 | disposition home or self-care (01) ==
PROVIDERS: Emergency Provider Preventive Medicine Aerospace Medicine
DX: M25.562 Pain in left knee (principal)
CPT/HCPCS: 73562; 96372; 99283; A9270; J1885

== ENCOUNTER 2023-07-27 00:38 | Emergency (ER) | payer OTHER, SELFPAY ==
[2023-07-27] VITALS (9 sets, daily range): BP systolic 130–161; BP diastolic 85–120; PULSE 80–99; RESP 16–29; TEMP 36.4; O2SAT 89–99
--- NOTE | ~2023-07-27 | XR_ITS ---
EXAMINATION: XR chest 2V DATE: 07/27/2023 03:05 INDICATION: Chest pain. TECHNIQUE: Frontal and lateral views of the chest were obtained. COMPARISON: Chest 2 views 12/13/2020, CT abdomen and pelvis 07/27/2023 FINDINGS: There is mild atelectasis at the lung bases. No pleural effusion or pneumothorax. The heart size is normal. There are prominent paracardial fat pads. Surgical clips in the right upper quadrant are likely from cholecystectomy. IMPRESSION: 1. Mild atelectasis at the lung bases. Reviewed, dictated and finalized at location A. GN RELEASE ENGINEER
--- NOTE | ~2023-07-27 | CT_ITS ---
EXAMINATION: CT abdomen pelvis w con DATE: 07/27/2023 03:53 INDICATION: Abdominal pain and distention. Nausea and vomiting. TECHNIQUE: Computed tomography (CT) of the abdomen and pelvis was performed with 100 mL Omnipaque 350 intravenous contrast. Automated exposure control and iterative reconstruction technique were employe d. The dose-length product was 407.58 mGy-cm. COMPARISON: CT abdomen and pelvis 12/13/2020 FINDINGS: The visualized portions of the lung bases demonstrate mild atelectasis. No pleural effusion . The heart size is normal. There is wall thickening of the esophagus, consistent with esophagitis. T here is diffuse hepatic steatosis. There are changes of cholecystectomy. Calcifications in the spleen are consistent with old granulomatous disease. The pancreas, adrenal glands, and kidneys are normal. There are bilateral inguinal hernias containing fat. There is diverticulosis of the colon without ev idence of diverticulitis. There are no dilated loops of bowel. The appendix is not visualized. There are no pathologically enlarged lymph nodes. There is no free intraperitoneal fluid. There is mild tho racic and lumbar spondylosis. IMPRESSION: 1. Wall thickening of the esophagus, consistent with esophagitis. 2. Bilateral inguinal hernias containing fat. 3. Diffuse hepatic steatosis. Reviewed, dictated and finalized at location A. INSPECTOR
--- NOTE | 2023-07-27 00:43 | ECG_ITS ---
Measurements Intervals [place] Rate: 95 P: 23 MD: 129 QRS: 34 QRSD: 84 T: 0 QT: 336 QTc: 424 Interpretive Statements SINUS RHYTHM NONSPECIFIC T-WAVE ABNORMALITY NO PREVIOUS ECG AVAILABLE FOR COMPARISON Electronically Signed On 07-27-2023 14:50:23 [employer]PER[employer] by Awilda Welsh M.D.
--- NOTE | 2023-07-27 00:45 | PC.NURSE ---
Patient unable to sit still for EKG.
[2023-07-27 02:50] LABS: Basophils Absolute Auto 0.2 K/mm3 (0.0-0.1); Basophils Percent Auto 0.9 % (0.2-1.2); Eosinophils Percent Auto 0.2 % (0-4.4); Hematocrit 43.1 % (42.0-52.0); Hemoglobin 14.5 g/dL (14.0-18.0); Immature Granulocyte Absolute 0.11 K/mm3 (0.00-0.031); Immature Granulocyte Percent A 0.7 % (0-0.5); Lymphocytes Absolute Auto 2.29 K/mm3 (0.9-3.2); Lymphocytes Percent Auto 14.1 % (18.3-44.2); Mean Corpuscular HGB Conc 33.6 g/dl (32-36); Mean Corpuscular Hemoglobin 30.8 pg (26-34); Mean Corpuscular Volume 91.5 fl (80-100); Mean Platelet Volume 9.9 fl (7.4-10.4); Monocytes Absolute Auto 1.2 K/mm3 (0.1-0.6); Monocytes Percent Auto 7.1 % (2.6-8.5); Neutrophils Absolute Auto 12.5 K/mm3 (1.3-6.7); Platelet Count Result 295 k/mm3 (150-375); Red Blood Count 4.71 M/mm3 (4.6-6.20); Red Cell Distribution Width 12.4 % (11.5-14.5); White Blood Count 16.3 K/mm3 (4.5-10.0)
--- NOTE | 2023-07-27 02:51 | PC.NURSE ---
Pt to XRAY at this time.
[2023-07-27] MEDS: ONDANSETRON INJ 4 MG/2 ML VIAL IV PUSH (02:57)
[2023-07-27] MEDS: SODIUM CHLORIDE 0.9% IV 1,000 ML 999 ML IV CONT (02:57)
[2023-07-27] MEDS: MORPHINE SULFATE (*CRX) 4 MG/ML INJ IV PUSH (02:58)
[2023-07-27 03:01] LABS: INR 0.9; Partial Thromboplastin Time 26.7 SECONDS (22.3-36.8); Prothrombin Time 12.7 Seconds (11.1-14.7)
[2023-07-27 03:27] LABS: Alanine Aminotransferase 35 U/L (6-50); Albumin Level 4.5 g/dL (3.5-5.1); Alkaline Phosphatase 77 U/L (38-126); Anion Gap 8 mmol/L (8-16); Aspartate Amino Transferase 33 U/L (17-59); Bilirubin,Total 0.7 mg/dL (0.2-1.3); Blood Urea Nitrogen 18 mg/dL (9-20); Calcium 9.2 mg/dL (8.4-10.2); Carbon Dioxide 25 mmol/L (22-30); Chloride 103 mmol/L (98-107); Estimated CRCL calculation 63 ml/min; Estimated Glomerular Filt Rate > 60; Glucose 110 mg/dL (65-110); Lipase 80 U/L (23-300); Sodium 136 mmol/L (137-145)
[2023-07-27 03:30] LABS: Lactic Acid Reflex 1.5 mmol/L (0.7-2.0)
[2023-07-27 03:37] LABS: Troponin I < 0.012 ng/mL (0.000-0.034)
[2023-07-27 06:08] LABS: Troponin I < 0.012 ng/mL (0.000-0.034)
--- NOTE | 2023-07-27 06:11 | ED.GENADULT ---
HPI - General Adult General Chief complaint: Abdominal Pain Stated complaint: upper abd pain, n/v bloody emesis Time Seen by Provider: 07/27/23 02:33 History of Present Illness HPI narrative: Patient is a 57-year-old gentleman who presents emergency department chief complaint of epigastric abdominal pain. Patient reports that he has had some nausea vomiting for the last 5 hours reports that his emesis was somewhat dark. The patient states symptoms are not improved by anything reports that he was started on baclofen recently Related Data Home Medications Medication Instructions Recorded Confirmed albuterol sulfate 90 mcg/actuation 1 puff inhalation Q4H PRN 04/04/20 03/05/22 aerosol inhaler Shortness Of Breath budesonide-formoterol HFA 160 2 puff inhalation Q12H 04/04/20 03/05/22 mcg-4.5 mcg/actuation aerosol inhaler (Symbicort) Tylenol PM 500 mg BYMOUTH DAILY PRN Headache 12/13/20 03/05/22 Allergies Allergy/AdvReac Type Severity Reaction Status Date / Time No Known Allergies Allergy Verified 07/27/23 00:43 Review of Systems Review of Systems: A 10 system review of systems was completed on the patient and is negative except for what is stated in the HPI. Nursing and ancillary documentation was reviewed. [facility] Past Medical History Medical History Chronic cholecystitis without calculus GERD with esophagitis History of asthma (Unknown) History of peptic ulcer disease Stroke Surgical History Surgical History H/O inguinal hernia repair 06/01/2020: robotic assisted BIH repair with [id number] progrip mesh. History of laparoscopic cholecystectomy Hx of cervical discectomy Family History Family History Father Carcinoma of colon Other Family history of malignant neoplasm Hypertension Social History Social History Smoking status: Never smoker Alcohol intake: current Drinks per week: 14 Substance use: never Living arrangements: alone Additional living arrangements comments: Plans to move to [place] Occupation/Education: unemployed Gender identity (if verbalized by the patient): Male Spiritual care concerns: No Exam Narrative: GENERAL: Well-appearing, well-nourished, and in no acute distress. HEAD: Normocephalic, atraumatic. EYES: PERRLA and EOMI. ENT: Nares clear, no rhinorrhea or epistaxis. Mucous membranes moist. NECK: Supple. CHEST: Clear to auscultation. No respiratory distress. HEART: Regular rate and rhythm. No murmur heard. Normal peripheral pulses. ABDOMEN: Soft, mild tenderness in the epigastric region, nondistended, normal active bowel sounds. EXTREMITIES: Normal range of motion. No edema. SKIN: Warm, dry, no rash. NEURO: No focal deficits. Alert and oriented x3. PSYCH: Normal mood and affect. Course Vital Signs Vital signs: Vital Signs Temperature 36.4 C 07/27/23 00:50 Pulse Rate 96 07/27/23 00:50 Respiratory Rate 20 07/27/23 00:50 Blood Pressure 161/94 H 07/27/23 00:50 Pulse Oximetry 99 07/27/23 00:50 Temperature 36.4 C 07/27/23 00:50 Pulse Rate 99 07/27/23 02:45 Respiratory Rate 22 H 07/27/23 02:45 Blood Pressure 157/91 H 07/27/23 02:45 Pulse Oximetry 96 07/27/23 02:45 Medical Decision Making MDM Narrative Medical decision making narrative: Differential diagnosis gastroenteritis, gastritis, diverticulitis colitis Laboratory studies were obtained the patient's white count 74111 electrolytes are otherwise within normal limits hemoglobin was 14.5 CT scan of the abdomen pelvis showed evidence of esophagitis Vital Signs Vital Signs: Vital Signs Temperature 36.4 C 07/27/23 00:50 Pulse Rate 96 07/27/23 00:50 Respiratory Rate 20 07/27/23 00
== END 2023-07-27 07:06 | disposition home or self-care (01) ==
PROVIDERS: Emergency Provider Emergency Medicine
DX: K20.90 Esophagitis, unspecified without bleeding (principal); R10.13 Epigastric pain; R11.2 Nausea with vomiting, unspecified; K21.9 Gastro-esophageal reflux disease without esophagitis; Z86.73 Personal history of transient ischemic attack (TIA), and cerebral infarction without residual deficits
CPT/HCPCS: 36415; 71046; 74177; 80053; 83605; 83690; 84484; 85025; 85610; 85730; 93005; 96361; 96374; 96375; 99284; J2270; J2405; J7030; Q9967

== ENCOUNTER 2023-10-10 14:18 | Emergency (ER) | payer OTHER, SELFPAY ==
--- NOTE | ~2023-10-10 | XR_ITS ---
EXAMINATION: XR chest 1V portable DATE: 10/10/2023 15:11 INDICATION: Dyspnea. Asthma. TECHNIQUE: A single frontal view of the chest was obtained. COMPARISON: Chest 2 views 07/27/2023 FINDINGS: The lung volumes are small. There is mild atelectasis at the lung bases. No pleural effusio n or pneumothorax. The heart size is normal. There are prominent paracardial fat pads. There are like ly changes of ocular lens replacement surgeries. IMPRESSION: 1. Small lung volumes with mild atelectasis at the lung bases. Reviewed, dictated and finalized at location A.
[2023-10-10 14:21] VITALS: BP 153/110; PULSE 109; RESP 26; TEMP 36.4; O2SAT 98
--- NOTE | 2023-10-10 14:23 | ECG_ITS ---
Measurements Intervals [place] Rate: 106 P: 20 TN: 127 QRS: 35 QRSD: 88 T: 39 QT: 317 QTc: 422 Interpretive Statements SINUS TACHYCARDIA NONSPECIFIC ST & T-WAVE ABNORMALITY- DIFFUSE LEADS BASELINE ARTIFACT- III, AVL ABNORMAL ECG COMPARED TO ECG 07/27/2023 02:46:09 SINUS TACHYCARDIA NOW PRESENT Electronically Signed On 10-10-2023 14:45:00 CDT by Marcos Gonzales D.O.
[2023-10-10] MEDS: predniSONE 20 MG TABLET 40 MG PO (14:39)
--- NOTE | 2023-10-10 14:39 | ED.RECABL ---
HPI - Recheck/Abnormal Lab/Rx General Chief Complaint: Recheck/Abnormal Lab/Rx Stated Complaint: high bp, sob w/ excertion Time Seen by Provider: 10/10/23 14:22 History of Present Illness HPI narrative: Patient presenting here concerned for elevated blood pressure and shortness of breath, he states that he had been feeling fine, and that his blood pressure checked in was told that it was high, he became more anxious and went somewhere else that also told his blood pressure was high, and at this time he started having shortness of breath. He does have a history of asthma / COPD that he takes medications for. Related Data Home Medications Medication Instructions Recorded Confirmed albuterol sulfate 90 mcg/actuation 1 puff inhalation Q4H PRN 04/04/20 03/05/22 aerosol inhaler Shortness Of Breath budesonide-formoterol HFA 160 2 puff inhalation Q12H 04/04/20 03/05/22 mcg-4.5 mcg/actuation aerosol inhaler (Symbicort) Tylenol PM 500 mg BYMOUTH DAILY PRN Headache 12/13/20 03/05/22 Allergies Allergy/AdvReac Type Severity Reaction Status Date / Time No Known Allergies Allergy Verified 07/27/23 00:43 Review of Systems Review of Systems: CONST: No fever. HEENT: No sore throat C/V: No chest pain RESP: short of breath GI: No abdominal pain : No dysuria. M/S: No joint pain. SKIN: No rash. NEURO: [No headache or focal numbness or weakness] PSYCH: anxiety PMFSH Past Medical History Medical History Chronic cholecystitis without calculus GERD with esophagitis History of asthma (Unknown) History of peptic ulcer disease Stroke Surgical History Surgical History H/O inguinal hernia repair 06/01/2020: robotic assisted BIH repair with [id number] progrip mesh. History of laparoscopic cholecystectomy Hx of cervical discectomy Family History Family History Father Carcinoma of colon Other Family history of malignant neoplasm Hypertension Social History Social History Smoking status: Never smoker Alcohol intake: current Drinks per week: 14 Substance use: never Living arrangements: alone Additional living arrangements comments: Plans to move to [place] Occupation/Education: unemployed Gender identity (if verbalized by the patient): Male Spiritual care concerns: No Exam Narrative: EXAMINATION OF ORGAN SYSTEMS/BODY AREAS: Constitutional: Vital signs per nursing GENERAL: appears quite anxious HEAD: Normal with no signs of head trauma. EYES: EOMI, conjunctiva normal ENT: Hearing grossly intact LUNGS: tachypneic, diminished lung sounds HEART: [Regular rate and rhythm] ABD: [Soft], [nontender to palpation] EXT: Normal range of motion SKIN: [No rashes or lesions.] NEURO: [Alert and oriented x 3. No gross focal sensory or strength deficits.] PSYCH: Normal affect Course Vital Signs Vital signs: Vital Signs Temperature 97.6 F 10/10/23 14:21 Pulse Rate 109 H 10/10/23 14:21 Respiratory Rate 26 H 10/10/23 14:21 Blood Pressure 153/110 H 10/10/23 14:21 Pulse Oximetry 98 10/10/23 14:21 Oxygen Delivery Room Air 10/10/23 14:21 Temperature 97.9 F 10/10/23 16:19 Pulse Rate 97 10/10/23 16:19 Respiratory Rate 20 10/10/23 16:19 Blood Pressure 134/95 H 10/10/23 16:19 Pulse Oximetry 98 10/10/23 16:19 Oxygen Delivery Room Air 10/10/23 14:21 MDM - Recheck/Abnormal Lab/Rx MDM Narrative Medical decision making narrative: ED COURSE AND MEDICAL DECISION MAKIN-year-old male with acute dyspnea and concern for high blood pressure; on exam he appears extremely anxious with slightly diminished lung sounds, I am suspecting acute asthma exacerbation based on history and exam versus potentially p
[2023-10-10] MEDS: ALBUTEROL SULFATE NEB 2.5 MG/3 ML INH 15 MG INHALATION (14:45)
[2023-10-10 14:46] VITALS: PULSE 97; RESP 24
[2023-10-10] MEDS: IPRATROPIUM BR 0.02% INH SOLN 0.5 MG/2.5 ML VIAL 1 MG INHALATION (14:46)
[2023-10-10 16:05] VITALS: PULSE 96; RESP 24
[2023-10-10 16:19] VITALS: BP 134/95; PULSE 97; RESP 20; TEMP 36.6; O2SAT 98
== END 2023-10-10 16:20 | disposition home or self-care (01) ==
PROVIDERS: Emergency Provider Emergency Medicine; PCP Family Medicine
DX: J44.9 Chronic obstructive pulmonary disease, unspecified (principal); R06.02 Shortness of breath; K21.00 Gastro-esophageal reflux disease with esophagitis, without bleeding; Z87.11 Personal history of peptic ulcer disease; Z86.73 Personal history of transient ischemic attack (TIA), and cerebral infarction without residual deficits; Z90.49 Acquired absence of other specified parts of digestive tract; R00.0 Tachycardia, unspecified; R94.31 Abnormal electrocardiogram [ECG] [EKG]
CPT/HCPCS: 71045; 93005; 94640; 99283; J7512

== ENCOUNTER 2023-11-02 10:02 | Emergency (ER) | payer OTHER, SELFPAY ==
--- NOTE | ~2023-11-02 | XR_ITS ---
XR ankle LT min 3V DATE: 11/02/2023 12:30 INDICATION: Left ankle pain. Lateral swelling. History of gout. TECHNIQUE: 4 views COMPARISON: None FINDINGS: There is mild to moderate lateral soft tissue swelling. No fracture or dislocation of the ankle or disruption of the ankle mortise is detected. No periosteal reaction or bone destruction. Posterior calcaneal enthesopathy IMPRESSION: Lateral soft tissue swelling; no significant bony abnormality of the left ankle Posterior calcaneal enthesopathy. Reviewed, dictated and finalized at location A. IMPRESSION: Lateral soft tissue swelling; no significant bony abnormality of th e left ankle Posterior calcaneal enthesopathy.
[2023-11-02 10:15] VITALS: BP 117/92; PULSE 102; RESP 19; TEMP 36.6; O2SAT 97
[2023-11-02 12:25] VITALS: BP 111/87; PULSE 89; RESP 17; O2SAT 98
--- NOTE | 2023-11-02 13:25 | ED.EXTPRO ---
HPI - Extremity Problem General Chief complaint: Extremity Problem,Nontraumatic Stated complaint: LE pain Time Seen by Provider: 11/02/23 10:19 History of Present Illness HPI Narrative: 58-year-old male presenting to the emergency department for evaluation left ankle pain that has been bothering him for the last few days. Patient is unsure if he had any falls or injuries. Patient denies any other pain or injury. Patient has been using crutches due to pain with limited weight-bearing. Related Data Home Medications Medication Instructions Recorded Confirmed albuterol sulfate 90 mcg/actuation 1 puff inhalation Q4H PRN 04/04/20 03/05/22 aerosol inhaler Shortness Of Breath budesonide-formoterol HFA 160 2 puff inhalation Q12H 04/04/20 03/05/22 mcg-4.5 mcg/actuation aerosol inhaler (Symbicort) Tylenol PM 500 mg BYMOUTH DAILY PRN Headache 12/13/20 03/05/22 Allergies Allergy/AdvReac Type Severity Reaction Status Date / Time No Known Allergies Allergy Verified 11/02/23 10:23 Review of Systems Review of Systems: All systems reviewed & are unremarkable except as noted in HPI and below PMFSH Past Medical History Medical History Chronic cholecystitis without calculus GERD with esophagitis History of asthma (Unknown) History of peptic ulcer disease Stroke Surgical History Surgical History H/O inguinal hernia repair 06/01/2020: robotic assisted BIH repair with [id number] progrip mesh. History of laparoscopic cholecystectomy Hx of cervical discectomy Family History Family History Father Carcinoma of colon Other Family history of malignant neoplasm Hypertension Social History Social History Smoking status: Never smoker Alcohol intake: current Drinks per week: 14 Substance use: never Living arrangements: alone Additional living arrangements comments: Plans to move to [place] Occupation/Education: unemployed Gender identity (if verbalized by the patient): Male Spiritual care concerns: No Exam Narrative: APPEARANCE: Well appearing, no pain, no distress, well-nourished. HEAD: normocephalic, atraumatic. EYES: PERRLA/EOMI, conjunctivae clear. NOSE: Normal no drainage EARS:TMS clear with good light reflex. THROAT: Pharynx clear, no exudate. NECK: Supple. No adenopathy, no masses. RESPIRATORY: Airway patent, respirations nonlabored. Clear to auscultation bilaterally, no rales, rhonchi, wheezing. CARDIOVASCULAR: Regular rate and rhythm without murmurs rubs or gallops. ABDOMINAL: Soft, nontender, nondistended, normal bowel sounds MUSCULOSKELETAL: Moves all extremities. Strength/ROM intact, No edema, No calf tenderness. NEURO: Alert. Cranial nerves II through XII intact. Grossly intact SKIN: Warm, dry. Normal Color Course Course Emergency Course: Patient was treated for an ankle sprain. Vital Signs Vital signs: Vital Signs Temperature 97.8 F 11/02/23 10:15 Pulse Rate 102 H 11/02/23 10:15 Respiratory Rate 19 11/02/23 10:15 Blood Pressure 117/92 H 11/02/23 10:15 Pulse Oximetry 97 11/02/23 10:15 Oxygen Delivery Room Air 11/02/23 10:15 Temperature 97.8 F 11/02/23 10:15 Pulse Rate 89 11/02/23 12:25 Respiratory Rate 17 11/02/23 12:25 Blood Pressure 111/87 11/02/23 12:25 Pulse Oximetry 98 11/02/23 12:25 Oxygen Delivery Room Air 11/02/23 10:15 MDM - Extremity (Nontraumatic) MDM Narrative Medical decision making narrative: 58-year-old male present to the emergency department for evaluation of left ankle pain. X-ray shows no acute fracture dislocation. Patient was provided Troy wrap for increased stability and patient did have crutches and was advised to do limited weight-bearing. Suspect a
== END 2023-11-02 13:30 | disposition home or self-care (01) ==
PROVIDERS: Emergency Provider Emergency Medicine; PCP Family Medicine
DX: S93.402A Sprain of unspecified ligament of left ankle, initial encounter (principal); J45.909 Unspecified asthma, uncomplicated; K21.9 Gastro-esophageal reflux disease without esophagitis; Z87.11 Personal history of peptic ulcer disease; Z86.73 Personal history of transient ischemic attack (TIA), and cerebral infarction without residual deficits; Z90.49 Acquired absence of other specified parts of digestive tract; X58.XXXA Exposure to other specified factors, initial encounter
CPT/HCPCS: 73610; 99283

== ENCOUNTER 2025-02-28 08:47 | Emergency (ER) | payer OTHER, SELFPAY ==
--- NOTE | ~2025-02-28 | XR_ITS ---
XR chest 2V 02/28/2025 09:51 Indication: Dizziness Procedure: Dizziness Comparison: 2 view chest Findings: Bibasilar atelectasis. No focal pneumonia, edema, pleural effusion or pneumothorax. No acut e cardiopulmonary disease. There are cholecystectomy clips. Impression: 1: Bibasilar atelectasis. Reviewed, dictated and finalized at location A. Impression: 1: Bibasilar atelectasis.
--- NOTE | ~2025-02-28 | CT_ITS ---
EXAMINATION: CT brain wo con DATE: 02/28/2025 09:44 INDICATION: Dizziness TECHNIQUE: Computed tomography (CT) of the head was performed without intravenous contrast. The dose- length product was 605.33 mGy-cm. Automated exposure control and iterative reconstruction technique w ere employed. COMPARISON: None FINDINGS: There is normal brain parenchymal volume. No ventriculomegaly or midline shift. Basilar cis terns are patent. There is mucosal thickening of the maxillary and ethmoid sinuses consistent with pa nsinusitis. Mastoids are pneumatized. No depressed skull fractures. IMPRESSION: 1. No acute intracranial abnormality. 2: Pansinusitis. Reviewed, dictated and finalized at location A.
--- OUTSIDE RECORDS SUMMARY | 2025-02-28 08:52 | XMS_ITS | Clinical Summary ---
Author Organization [facility] Address [address] Attn: Epic Prelude ADT JOELLE BAIG [id number] Care Team Providers Care Rail Bonder Name Role Phone Unavailable Primary Care Provider Unavailabl e Social History Tobacco Use Types Packs/Day Years Used Date Smoking Tobacco: Never Assessed Sex and Gender Information Value Date Recorded Sex Assigned at Not on file Legal Sex Male 10:03 PM CDT Gender Identity Not on file Sexual Orientation Not on file Plan of Treatment Health Maintenance Due Date Last Done Comments DTAP/TDAP/TD VACCINES (1 - Tdap) 1985 HEPATITIS B VACCINES (1 of 3 - 19+ 3-dose series) 09/1985 COLORECTAL SCREENING 09/28/2011 Colorectal Cancer Screening 09/28/2011 FIT-DNA Q 3 years 09/28/2011 FIT/FOBT Q 1 year 09/28/2011 Flex Sig/CT Colonography Q 5 years 09/28/2011 ZOSTER VACCINE (1 of 2) 2016 INFLUENZA VACCINE (#1) 2025
--- OUTSIDE RECORDS SUMMARY | 2025-02-28 08:52 | XMS_ITS | Encounter Summary ---
Author Organization [facility] [place] [address] [place] [address] Care Team Providers Care Debt Collection Specialist Name Role Phone Unavailable Primary Care Provider Unavailabl e Encounter Details Date Type Department Care Team (Late st Contact Info) Description 10/30/2011 Ancillary Orders [facility] [address] [place] [address] Antoinette Lew PA-C [address] [place] [address] Neck pain Social History Tobacco Use Types Packs/Day Years Used Date Smoking Tobacco: Never Assessed Sex and Gender Information Value Date Recorded Sex Assigned at Not on file 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 Disc spaces and vertebral body heights are well maintained. Atlantoaxial joint unremarkable. Oblique projection shows widely patent intervertebral foramen. No abnormal subluxation on flexion and extension views. Procedure Note Landen Fall MD - 10/30/2011 PROCEDURE: XR CERVICAL SPINE MIN 4+ VW REASON FOR STUDY: CERVICALGIA 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 Disc spaces and vertebral body heights are well maintained. Atlantoaxial joint unremarkable. Oblique projection shows widely patent intervertebral foramen. No abnormal subluxation on flexion and extension views. us Antoinette Lew PA-C DIAGNOSTIC IMAGING ORDERABLES Fi nal Result documented in this encounter Visit Diagnoses Diagnosis Neck pain Cervicalgia Neck pain Cervicalgia documented in this encounter
--- OUTSIDE RECORDS SUMMARY | 2025-02-28 08:52 | XMS_ITS | Patient Health Record ---
Author Organization 1. [facility] Address [address] [facility] [address] [place] [address] Care Team Providers Care Television Maintenance Man Name Role Phone PABLO LUTHER Unavailable [phone] Reason For Referral No Information Plan Of Treatment No Information Insurance Providers Payer Name Payer Address Payer Phone Subscriber Number Group Number Insured Name Patient Relationship to Insured Coverage Start Date Coverage End Date [facility] [address] [place] [address] [id number] Eusebio Martinez Self - patient is the insured
--- OUTSIDE RECORDS SUMMARY | 2025-02-28 08:52 | XMS_ITS | Continuity of Care Document ---
Author Organization [facility] Address [address] [place] [address] Phone Care Team Providers Care Computer Recycling Worker Name Role Phone Konrad Parker MD Unavailable Unavailable Allergies, Adverse Reactions, Alerts Substance Reaction Status Criticality No Known Allergies Active No Inform ation Medications Medication Instructions Dosage Effective Dates (start - stop) Status Comments Zantac 150 mg tablet take 1 tablet by or al route 2 times every day - Active Procedures Procedure Date OFFICE/OUTPATIENT VISIT, EST PREV VISIT, EST, AGE 40-64 OFFICE/OUTPATIENT VISIT, EST OFFICE/OUTPATIENT VISIT, EST OFFICE/OUTPATIENT VISIT, EST PREV VISIT, EST, AGE 40-64 OFFICE/OUTPATIENT VISIT, EST OFFICE/OUTPATIENT VISIT, EST OFFICE/OUTPATIENT VISIT, EST PREV VISIT, NEW, AGE 40-64 Advance Directives Directive Yes / No Effective Date File Name No Information Encounters Encounter Description Practice Location Reason(s) For Visit Diagnoses Date Provider Providers Copied on Encounter [facility], [address] [place], [place], [id number], tel:[phone] [facility] No Information 8 Keith Silvestre. [address] [place], [place], [address] , [place]. tel:[phone] OFFICE/OUTPA TIENT VISIT, EST [facility], [address] [place], [place], [address], [place] tel:[phone] [facility] Medicine wrist pain1 (chief complaint) GERD1 (chief complaint) prostate 1 (chief complaint) HTN (chief complaint) Pain in right wristGERD w/o esophagitisEncounte r for screening for malignant neoplasm of prostateEssential (primary) hypertension 8 Keith Silvestre. [address], [place], [place], [address] , [place]. [phone] Referring Provider: Madelaine Hayes [address], [place], [place], [address]. tel:[phone] PREV VISIT, EST, AGE 40-64 [facility], [address], [place], [place], [address], [place] tel:[phone] [facility] PHysical (chief complaint) Encounter for general adult medical exam w abnormal findingsUrinary frequencyGERD w/o esophagitisEssentia l (primary) hypertension 7 Keith Dias [address], [address], [place], [place], [address] , [place]. [phone] Referring Provider: Madelaine Hayes [address], [place], [place], [address]. tel:[phone] OFFICE/OUTPA TIENT VISIT, EST [facility], [address], [place], [place], [address], [place] tel:[phone] [facility] HLP (chief complaint) A1c (chief complaint) GERD1 (chief complaint) HyperlipidemiaGERD w/o esophagitisEncounte r for screening for malignant neoplasm of prostateMetabolic syndrome 7 Keith Silvestre. [address], [place], [place], [address] , [place]. tel:[phone] Referring Provider: Madelaine Hayes [address], [place], [place], [address]. tel:[phone] OFFICE/OUTPA TIENT VISIT, EST [facility], [address], [place], [place], [address], [place] tel:[phone] [facility] rectal bleeding1 (chief complaint) HTN (chief complaint) knee pain1 (chief complaint) Occult blood in stoolPain in left elbowEssential (primary) hypertensionPatient noncompliance w/ other medical regimen 6 Keith Dias [address], [place], [place], [address] , [place]. tel:[phone] Referring Provider: Madelaine Hayes [address], [place], [place], [address]. tel:[phone] PREV VISIT, EST, AGE 40-64 [facility], [address], [place], [place], [address], [place] tel:[phone] [facility] PHysical (chief complaint) Encounter for general adult medical exam w abnormal findingsPain in left kneePain in left elbowOther hyperlipidemia 6 Keith Dias [address], [place], [place], [address] , [place]. [phone] Referring Provider: Madelaine Hayes [address], [place], [place], [address]. tel:[phone] OFFICE/OUTPA TIENT VISIT, EST [facility], [address], [place], [address], [place] tel:[phone] [facility] knee pain1 (chief complaint) HLP (chief complaint) neck pain1 (chief complaint) Hyperlipidemia, unspecifiedPain in right kneeCervicalgiaMeta bolic syndrome 6 Keith Burkett [address], [place], [place], [address] , [place]. tel:[phone] Referring Provider: Madelaine Hayes [address], [place], [place], [address]. tel:[phone] OFFICE/OUTPA TIENT VISIT, EST [facility], [address], [place], [address], [place] tel:[phone] [facility] neck pain (chief complaint) HLP (chief complaint) Neck painHyperlipemiaMet abolic syndrome 5 Keith Dias [address], [place], [place], [address] , [place]. tel:[phone] Referring Provider: Konrad Parker, [address], [place], [place], [address]. tel:[phone] PREV VISIT, NEW, AGE 40-64 [facility], [address], [place], [place], [address], [place] tel:[phone] [facility] physical (chief complaint) Routine medical exam 0 5 Keith Silvestre. [address], [place], [place], [address] , [place]. tel:[phone] Family History Family Member Type Diagnosis Age At Onset Father Problem (finding) Cancer, colon Brother Problem (finding) Alive and well Mother Problem (finding) Alive and well Father Problem (finding) Alive and well Payers Payer name Insurance type Covered alliance party ID Authoriza tion(s) No Information Social History Type Description Quantity Date Captured Comments Alcohol Use Details Unknown Caffeine Use Details Unknown Tobacco Use Status No Information Smoking Status No Information Sex Male Chief Complaint And Reason For Visit No Information Plan Of Treatment Date Type Action Status Referral Ordered: Marco A Leon (related to Pain in right wrist) ordered Referral Ordered: WRIST XRAY 2 VIEWS Right wrist ordered Referral Referred To: Marco A Leon [place] [id number] [place] [address] [place], [place] [id number] Ordered: Referrals: Marco A Leon. Evaluate and treat ordered Referral Ordered: US EXAM OF ABDOMEN, LIMITED, GALLBLADDER ordered Referral Ordered: KNEE XRAY TWO-VIEW ordered Referral Ordered: Hiren Santos (related to Pain in right knee) ordered Referral Ordered: Physical Therapy (related to Pain in right knee) ordered Referral Referred To: Hiren Santos [address] [place], [id number] Ordered: Referrals: Hiren Santos. Evaluate and treat ordered Referral Referred To: Physical Therapy Ordered: Referrals: Physical Therapy. Evaluate and treat ordered Referral Ordered: Anil Honeycutt Jr (related to Neck pain) ordered Referral Referred To: Anil Honeycutt Jr [facility] [place], [phone] Ordered: Referrals: Anil Honeycutt Jr. Evaluate and treat ordered Referral Ordered: COLONOSCOPY AND BIOPSY ordered History Of Present Illness Encounter Date Complaint History Of Prese nt Illness wrist pain1 Pt c/o right costa d and wrist pain since last week. Pt woke up with the sharp pain. Pt denies any injury. pt notices mild swelling right wrist area. Pt denies any numbness. Pt denies any weakness. Pt went to ER and had negative right hand xray. Pt was given steroid, ibuprofen and norco. Pt states that right wrist pain still hurts but is getting better. Pt denies any elbow pain GERD1 Pt has GERd Pt d oing ok with zantac. Pt denies any ad pain or nausea, vomiting. prostate 1 Pt denies any pr ostate symptoms. Pt denies any urinary symptoms Pt had normal prostate exam last year HTN Pt has mild HTn today. Pt denies any chest pain or headache PHysical Pt needs annual physical. pt is on zantac now for mild GERD symptoms. Pt doing ok Pt denies any GERd or abdominal pain. Pt recenlty had gallbladder removed two weeks ago. Pt states that he notices that he has to have frequent urinatino since the surgery. Pt denies any dysuria, abd pain Pt states that he urinated 17 times yerday and he has been drinking mroe fluid also. Pt denies any abd pain except for post surgical pain. Pt denies any nauea, vomiting, diarrhea. Pt denies any other complaints. GERD1 Pt has chronic G ERD Pt had EGD done which showed hiatel hernia and healing esophagitis. Pt no longer has ulcer. Pt is on omeprazole and also zantac. Pt will ahve small capsule study soon for small intestine. Pt states that he has abd pain post food along with nausea. His EGD is better but he still has abd pain and severe GERD symptoms A1c pt has mild high A1c. Pt denies any polyuria, polydipsia His Bg is ok HLP Pt has mild HLP. He has high HDL also knee pain1 Pt has intermitt ent left knee and left elbow pain. Pt seen ortho recently but he still has no idea the name of the MD except for [place]? Pt denies any recent injury. Pt has not done knee xray. Pt states that his elbow and knee pain are getting better. HTN Pt has mild HTN today. Pt denies any chest pain or headache rectal bleeding1 Pt c/o bright r ed blood per rectum recently. [facility] but he still has not done it. Pt is very noncompliant. pt has familh history of colon CA. Pt denies any weight loss. Pt also has been having diarrhea for several months. PHysical Pt needs annual physical. Pt c/ o left elbow and left knee pain for several months Pt is very noncompliant. Pt did not do PT or see ortho. Pt also has neck pain but he did not make appointment with neck specialist also. pt denies any injury. Pt has HLP. Pt states that he has medial left elbow pain constantly. Pt denies any swelling. Pt denies any other complaints knee pain1 Pt c/o chornic r ight knee pain for 6 months. pt denies any injury. Pt stats that the knee pain flares up once a while with swelling and worsening pain. Pt denies any redness or warmth. Pt been to Er multiple times and one time he was drained with negative xray. Pt states that the knee hurts every other day. neck pain1 Pt has chornic n compa pain .Pt never went to see neurosurgery Pt states that his neck pain has not been so bad so he did not go to see neck specialist. HLP Pt has HLP Pt is not on any diet. pt did not want to try meds. HLP Pt has mild HLP on lab. Pt also has borderline A1c. Pt denies any polyuria, polydipsia neck pain Pertinent negati ves include bladder incontinence and rash. Additional information: Pt has chronic neck pain. Pt denies any radiculopathy. pt has 6/10 dull pain around neck all the time. Turning head makes the pain worse. Pt denies any recent injury. physical Pt needs annual physical. Pt has chronic neck pain. Pt has history of old neck fx. Pt denies any radiculopathy. Pt has not seen physician for many years. Pt denies any other complaints. Pt c/o 8/10 pain all the time. Pt c/o neck pain constantly Instructions Date Instruction Additional Infor ricky Prescribed Activity and Exercise Education Related to Dietary Surveillance and Counseling Prescribed Diet Educ ation/Lifestyle Education Regarding Diet Related to Dietary Surveillance and Counseling Weight management Related to Enc ounter for general adult medical exam w abnormal findings Increase physical activity Relat ed to Encounter for general adult medical exam w abnormal findings Prescribed Diet Educ ation/Lifestyle Education Regarding Diet Related to Dietary Surveillance and Counseling Prescribed Activity and Exercise Education Related to Dietary Surveillance and Counseling Follow a low sodium diet. Relate d to Hyperlipidemia Increase activity. Related to Hy perlipidemia Follow a low sodium diet. Relate d to Hyperlipidemia Increase activity. Related to Hy perlipidemia Prescribed Diet Educ ation/Lifestyle Education Regarding Diet Related to Dietary Surveillance and Counseling Prescribed Activity and Exercise Education Related to Dietary Surveillance and Counseling Assessments Type Assessment Date No Information
--- OUTSIDE RECORDS SUMMARY | 2025-02-28 08:52 | XMS_ITS | Clinical Summary ---
Author Organization [facility] Address [address] [place] [address] Care Team Providers Care Purchasing Administrative Assistant Name Role Phone Anibal Welsh MD Primary Care Provider [phone] Allergies No known active allergies Medications albuterol HFA (VENTOLIN HFA) 90 mcg/actuation inhaler inhale 2 puff by inhalation route every 4 - 6 hours as needed 0 Inhaler 0 6 Active allopurinoL (ZYLOPRIM) 300 mg tablet Take 1 tablet (300 mg total) by mouth daily 3 Active baclofen (LIORESAL) 20 mg tablet Take 1 tablet (20 mg total) by mouth 3 (three) times a day Active atorvastatin (LIPITOR) 80 mg tablet Take 1 tablet (80 mg total) by mouth nightly Active lisinopriL (PRINIVIL,ZESTR IL) 10 mg tablet Take 1 tablet (10 mg total) by mouth every morning 4 Active dicyclomine (BENTYL) 20 mg tablet Take 1 tablet (20 mg total) by mouth every 6 (six) hours 2 Active Active Problems No known active problems Encounters Date Type Department Care Team Description 01/12/2025 Orders Only [facility] [address] [place] [address] Anibal Welsh MD Chronic neck pain (Primary Dx) from Last 3 Months Medical History Medical History Date Comments Asthma Asthma; Comments : MMT 01/30/2016 - Social History Tobacco Use Types Packs/Day Years Used Date Smoking Tobacco: Never Smokeless Tobacco: Never Tobacco Cessation:Counseling Given: Not Answered AUDIT-C Answer Date Recorded Q1: How often do you have a drink containing alc ohol? 2-3 times a week 10/21/2023 Q2: How many drinks containi ng alcohol do you have on a typical day when you are drinking? 1 or 2 10/21/2023 Q3: How often do you have si x or more drinks on one occasion? 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 Gender Identity Not on file Sexual Orientation Not on file Obstetrics History Last Filed Vital Signs Vital Sign Reading Time Taken Comments Blood Pressure 110/76 10/21/2023 11:55 AM CDT Pulse 97 10/21/2023 11:55 AM CDT Temperature 37.2 C (98.9 F) 08/20/2017 4:20 PM PIZZA H[employer] TEAM MEMBER Respiratory Rate 18 10/21/2023 11:55 AM CDT Oxygen Saturation 95% 10/21/2023 11:55 AM CDT ra Inhaled Oxygen Concentration - - Weight 65.8 kg (145 lb 1.6 oz) 10/21/2023 11:55 AM CDT Height 152.4 cm (5') 10/21/2023 11:55 AM CDT Body Mass Index 28.34 10/21/2023 11:55 AM CDT Plan of Treatment Health Maintenance Due Date Last Done Comments Colon Cancer Screening-Colonoscopy 1966 Depression Screening 1966 Hepatitis C Screening 1966 Prostate Cancer Screening-PSA 1966 DTaP/Tdap/Td Vaccine (1 - Tdap) 1977 Hepatitis B Screening 1984 Regular Well Visit/Exam 18-64 1984 Pneumococcal vaccine <65 (1 of 2 - PCV) 1985 Zoster Vaccine (1 of 2) 2016 Covid-19 Vaccine (4 - 2023-2 5 season) 2024 05/18/2023, 11/14/2020, 10/24/2020 Influenza Vaccine (#1) 2025 , 07/01/2022, 04/19/2021 Colon Cancer Screening-FIT Discontinued 09/02, 09/01/2016, 08/31/2016 Procedures Procedure Name Priority Date/Time Associated Diagnosis Comments OCCULT BLOOD, FECAL (FIT) Routine 09/02/2016 10:08 AM PIZZA H[employer] TEAM MEMBER from Last 3 Months or Most Recently Relevant to Health Maintenance Results * Occult blood, fecal non neoplasm screening (09/02/2016 10:08 AM PIZZA H[employer] TEAM MEMBER) Stool Occult Blood NEGATIVE NEGATIVE 09/02/2016 1:29 PM PIZZA HUT TEAM MEMBER [facility] HISTORICAL RESULTS 09/02/2016 10:0 8 AM PIZZA HUT TEAM MEMBER 09/02/2016 10:08 AM PIZZA HUT TEAM MEMBER Walter Dior MD LAB BODY FLUIDS AND STOOLS [facility] T[facility]OR Final Result [facility] HISTORICAL RESULTS from Last 3 Months or Most Recently Relevant to Health Maintenance Insurance [id number] [place] [address] [facility] Care Teams Purchasing Administrative Assistant Relationship Specialty Start Date End Date Anibal Welsh MD [address] [facility] [place] [address] PCP - General Family Medicine 08/21/23
--- OUTSIDE RECORDS SUMMARY | 2025-02-28 08:52 | XMS_ITS | Referral Summary ---
Author Organization [facility] Address [address] [place] [address] Care Team Providers Care Circulation Supervisor Name Role Phone Anibal Welsh MD Primary Care Provider Encounters Date Type Department Care Team Description 01/12/2025 Orders Only [facility] [address] [facility] [address] [place] [address] Anibal Welsh MD Chronic neck pain (Primary Dx) from Last 3 Months Allergies No known active allergies Medications albuterol [...] Active Active Problems No known active problems Social History Tobacco Use Types Packs/Day Years [...] on file Legal Sex Male 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 Gender Identity Not on file Sexual Orientation Not on file Last Filed Vital Signs Vital Sign Reading Time Taken Comments Blood Pressure 110/76 10/21/2023 11:55 AM CDT Pulse 97 10/21/2023 11:55 AM CDT Temperature 37.2 C (98.9 F) 08/20/2017 4:20 PM MEDICAL IMAGING SPECIALIST Respiratory Rate 18 10/21/2023 11:55 AM CDT Oxygen Saturation 95% 10/21/2023 11:55 AM CDT ra Inhaled Oxygen Concentration - - Weight 65.8 kg (145 lb 1.6 oz) 10/21/2023 11:55 AM CDT Height 152.4 cm (5') 10/21/2023 11:55 AM CDT Body Mass Index 28.34 10/21/2023 11:55 AM CDT Plan of Treatment Not on file Procedures Procedure Name Priority Date/Time Associated Diagnosis Comments OCCULT BLOOD, FECAL (FIT) Routine 09/02/2016 10:08 AM MEDICAL IMAGING SPECIALIST from Last 3 Months or Most Recently Relevant to Health Maintenance Results * Occult blood, fecal non neoplasm screening (09/02/2016 10:08 AM MEDICAL IMAGING SPECIALIST) Stool Occult Blood NEGATIVE NEGATIVE 09/02/2016 1:29 PM MEDICAL IMAGING SPECIALIST [facility] RES[facility] 09/02/2016 10:0 8 AM MEDICAL IMAGING SPECIALIST 09/02/2016 10:08 AM MEDICAL IMAGING SPECIALIST us Walter Dior MD LAB BODY FLUIDS AND STOOLS [facility] Final Result [facility] HISTORICAL RESULTS from Last 3 Months or Most Recently Relevant to Health Maintenance Insurance [facility] Care Teams Circulation Supervisor Relationship Specialty Start Date End Date Anibal Welsh MD [address] [facility] [place] [address] PCP - General Family Medicine 08/21/23
--- OUTSIDE RECORDS SUMMARY | 2025-02-28 08:52 | XMS_ITS | Clinical Summary ---
Author Organization [facility] Address [address] [place] [address] Phone Care Team Providers Care Learning And Development Officer Name Role Phone Unavailable Primary Care Provider Unavailabl e Social History Tobacco Use Types Packs/Day Years Used Date Smoking Tobacco: Never Assessed Sex and Gender Information Value Date Recorded Sex Assigned at Not on file Legal Sex Male 6:21 AM DIRECTOR OF SUSTAINABILITY PROGRAMS Gender Identity Not on file Sexual Orientation [...]
[2025-02-28 08:58] VITALS: BP 145/111; PULSE 62; RESP 20; TEMP 36.4; O2SAT 98
--- NOTE | 2025-02-28 09:29 | ED_ITS ---
HPI - Dizziness General Chief Complaint: Dizziness Stated Complaint: dizzy Time Seen by Provider: 02/28/25 09:29 59-year-old male presents to ER complaining of dizziness for proximally 3 days. Patient said symptoms started when he woke up 3 days ago. Patient says he feels like he is in motion in that is worse when he is lying down. Patient says he has never had any dizziness before. Patient denies any ear pain, tinnitus, slurred speech, facial droop, weakness, numbness, tingling, chest pains, nausea, vomiting, breathing problems, or any other symptoms. Patient reports having history of chronic neck problems. Focused HPI: GENERAL: Well-appearing, well-nourished, and in no acute distress. HEAD: Normocephalic, atraumatic. EYES: Sclera white/clear, conjunctiva normal. Extraocular movements intact. Pupils PERRLA. No nystagmus. CHEST: Clear to auscultation. ?No respiratory distress. HEART: Regular rate and rhythm.? NEURO: ?Alert and oriented x3. No obvious focal neurological abnormalities. Cranial nerve 2-12 grossly intact. No pronator drift, furnishings conservator strength equal bilaterally. No limb ataxia. Speech is clear. No Facial drooping. Patient screened in triage and initial orders placed.? ?Additional care and disposition to be based upon?diagnostic testing and treatment. Source: patient and RN notes reviewed Mode of arrival: ambulatory Limitations: no limitations History of Present Illness HPI Narrative: HPI listed in MSE. Related Data Home Medications ?Medication ?Instructions ?Recorded ?Confirmed ?Last Taken ?Type albuterol sulfate 90 mcg/actuation 1 puff inhalation Q4H PRN 04/04/20 03/05/22 06/01/20 History aerosol inhaler Shortness Of Breath budesonide-formoterol HFA 160 2 puff inhalation Q12H 04/04/20 03/05/22 12/13/20 History mcg-4.5 mcg/actuation aerosol inhaler (Symbicort) Tylenol PM 500 mg BYMOUTH DAILY PRN Headache 12/13/20 03/05/22 Unknown History Allergies Allergy/AdvReac Type Severity Reaction Status Date / Time No Known Allergies Allergy Verified 02/28/25 10:06 Review of Systems 2 Review of Systems: CONSTITUTIONAL: Denies fever, chills, or sweats. EYES: Denies visual changes, redness, or discharge. ENT: Denies rhinorrhea, congestion, sore throat, or otalgia. CARDIOVASCULAR: Denies chest pain, palpitations, lightheadedness, or edema. Positive for dizziness. RESPIRATORY: Denies cough or dyspnea. GASTROINTESTINAL: Denies abdominal pain, nausea, vomiting, or diarrhea. GENITOURINARY: Denies dysuria or hematuria. SKIN: Denies rash or itching. MUSCULOSKELETAL: Denies back pain, joint pain, or myalgia. NEUROLOGIC: Denies headache, slurred speech, facial droop, numbness, or weakness. PSYCHIATRIC: Denies anxiety or depression. All other systems reviewed are negative, except as documented in HPI. [facility] Past Medical History Medical History GERD with esophagitis Chronic cholecystitis without calculus Stroke History of peptic ulcer disease History of asthma (Unknown) Surgical History Surgical History Hx of cervical discectomy H/O inguinal hernia repair 06/01/2020: robotic assisted BIH repair with [id number] progrip mesh. History of laparoscopic cholecystectomy Family History Family History Father Carcinoma of colon Other Family history of malignant neoplasm Hypertension Social History Social History Smoking status: Never smoker Alcohol intake: current Drinks per week: 14 Substance use: never Living arrangements: alone Additional living arrangements comments: Plans to move to [place] Occupation/Education: unemployed Gender identity (if verbalized by the patient): Male Spiritual care concerns: No Comments At the time of my signature, I reviewed and agree with the nursing past medical, surgical, social, and family history. There is no relevant family history pertinent to the patient complaint. Exam 2 Narrative: GENERAL: This is a well-nourished, well-developed adult, in no apparent distress. They are non ill-appearing, nontoxic appearing. HEAD: normocephalic, atraumatic. EYES: Sclera clear/white. Conjunctiva normal. Vision is grossly intact. Extraocular movements intact. Pupils PERRLA. No nystagmus. EARS: External ears normal, auditory canals clear and without drainage, TMs normal without perforation. Hearing grossly intact. NOSE: External nose normal THROAT: Mucous membranes moist, NECK: Neck supple, non-tender without lymphadenopathy, masses or thyromegaly. CARDIOVASCULAR: Regular rate and rhythm without murmurs, gallops, or rubs. RESPIRATORY: Clear to auscultation. Breath sounds equal bilaterally. No wheezes, rales, or rhonchi. SKIN: warm, Dry, intact with no suspicious lesions or rash, good texture and turgor. NEURO: awake, alert, and oriented to person, place and time. There were no obvious focal neurologic abnormalities. Cranial nerve 2-12 grossly intact. No pronator drift, furnishings conservator strength equal bilaterally. No limb ataxia. Speech is clear. No Facial drooping. EXTREMITIES: No joint tenderness, effusion, or edema noted. Course Course Emergency Course: Portions of this record may have been created with voice recognition software Vital Signs Vital signs: Vital Signs Temperature 97.6 F 02/28/25 08:58 Pulse Rate 62 02/28/25 08:58 Respiratory Rate 20 02/28/25 08:58 Blood Pressure 145/111 H 02/28/25 08:58 Pulse Oximetry 98 02/28/25 08:58 Oxygen Delivery Room Air 02/28/25 08:58 Temperature 97.6 F 02/28/25 08:58 Pulse Rate 62 02/28/25 10:26 Respiratory Rate 20 02/28/25 10:26 Blood Pressure 131/79 02/28/25 10:26 Pulse Oximetry 98 02/28/25 10:26 Oxygen Delivery Room Air 02/28/25 08:58 Reviewed MDM - Dizziness MDM Narrative Medical decision making narrative: NIH score of 0. Symptoms appear to be vertigo. Lab work and imaging obtained. Lab work unremarkable, negative troponin. EKG sinus bradycardia without ischemic findings. CT of head negative for any intracranial findings or acute findings. Sinusitis noted. Patient does report congestion and sinus pressure as well. Patient dizziness improved with meclizine. Will Go ahead and treat sinusitis with Augmentin. Will prescribe meclizine as needed for dizziness. Discussed physical exam findings. Advised supportive measures and signs/symptoms to go to the ER. Pt is appropriate for outpt treatment and f/u. Differential Diagnosis Differential diagnosis: Likely other (Vertigo, arrhythmia, CVA, vestibular disorder) Lab Data Attestation: I reviewed the patient's lab results. 02/28/25 10:14 02/28/25 10:14 Labs: Lab Results 02/28/25 Range/Units 10:14 WBC 8.8 (4.5-10.0) K/mm3 RBC 4.57 L (4.6-6.20) M/mm3 Hgb 13.8 L (14.0-18.0) g/dL Hct 42.6 (42.0-52.0) % MCV 93.2 (80-100) fl MCH 30.2 (26-34) pg MCHC 32.4 (32-36) g/dl RDW 12.9 (11.5-14.5) % Plt Count 271 (150-375) k/mm3 MPV 9.2 (7.4-10.4) fl Immature Gran % (Auto) 0.8 H (0-0.5) % Neut % (Auto) 69.3 (45.5-73.1) % Lymph % (Auto) 21.1 (18.3-44.2) % [place] % (Auto) 8.2 (2.6-8.5) % Eos % (Auto) 0.0 (0-4.4) % Baso % (Auto) 0.6 (0.2-1.2) % Lymph # (Auto) 1.85 (0.9-3.2) K/mm3 [place] # (Auto) 0.7 H (0.1-0.6) K/mm3 Eos # (Auto) 0.0 (0-0.3) K/mm3 Baso # (Auto) 0.1 (0.0-0.1) K/mm3 Abs Immat Gran (auto) 0.07 H (0.00-0.031) K/mm3 Absolute Neuts (auto) 6.1 (1.3-6.7) K/mm3 Absolute Nucleated RBC 0.000 (0.0-0.012) K/mm3 Nucleated RBC % 0.0 (0.0-0.2) % Sodium 137 (137-145) mmol/L Potassium 4.7 (3.4-5.0) mmol/L Chloride 104 (98-107) mmol/L Carbon Dioxide 26 (22-30) mmol/L Anion Gap 7 (4-12) mmol/L BUN 14 (9-20) mg/dL Creatinine 1.01 (0.7-1.3) mg/dL Estim Creat Clear Calc 56 ml/min Estimated GFR > 60 (59 - ) Glucose 91 (65-110) mg/dL Calcium 9.4 (8.4-10.2) mg/dL Total Bilirubin 0.6 (0.2-1.3) mg/dL AST 29 (17-59) U/L ALT 21 (6-50) U/L Alkaline Phosphatase 59 (38-126) U/L Troponin I < 0.012 (0.000-0.034) ng/mL Total Protein 7.1 (6.3-8.2) g/dL Albumin 4.3 (3.5-5.1) g/dL ECG Data EKG #1: ECG completion date: 02/28/25 ECG completion time: 10:16 Prior ECG tracings: not available for review EKG Interpretation: bradycardia, sinus rhythm, no ectopy, no ST changes, normal QRS, normal QT and no acute changes Critical Care Time Critical Care Time Critical Care Time: No Discharge Plan Discharge Clinical Impression: Dizziness, Sinusitis Patient Disposition: Home Condition: Stable Instructions: Antibiotic Form, Sinusitis (ED), Dizziness (ED) Additional Instructions: Your lab work was unremarkable today. CT scan of your brain is unremarkable but did notice sinusitis. Take meclizine as needed for dizziness. Take the antibiotics as directed and complete the course even if you start to feel better. You may use a Neti pot saline rinse 3 times a day with lukewarm distilled water Continue to take Tylenol or Motrin for pain. Use a humidifier or vaporizer at night. Drink plenty of water. 8-10 glasses per day. Use flonase 2 times per day for 5 days then as needed Take mucinex 2 times per day and be sure to take with 8oz of water. Follow up with Primary provider in 3-5 days Please go to the ER if he develops any difficulty breathing, worsening symptoms, severe headaches, vision changes, of one-sided weakness, slurred speech, facial droop, loss of consciousness, uncontrollable dizziness, or any other concerns Patient Language: Honduran Prescriptions: New amoxicillin-pot clavulanate 875-125 mg tablet 1 tablet PO Q12H 7 Days Qty: 14 0RF meclizine 25 mg tablet 25 mg PO TID Qty: 14 0RF No Action albuterol sulfate 90 mcg/actuation HFA aerosol inhaler 1 puff INHALATION Q4H PRN (Reason: Shortness Of Breath) budesonide-formoterol [Symbicort] 160-4.5 mcg/actuation HFA aerosol inhaler 2 puff INHALATION Q12H ondansetron 4 mg tablet,disintegrating 4 mg PO Q8H PRN (Reason: nausea and vomiting) Qty: 10 0RF pantoprazole [Protonix] 40 mg tablet,delayed release (DR/EC) 40 mg PO QAM 28 Days Qty: 28 0RF dicyclomine 20 mg tablet 20 mg PO QID PRN (Reason: abdominal discomfort) Qty: 20 0RF prednisone 20 mg tablet 40 mg PO DAILY 4 Days Qty: 8 0RF Tylenol PM 500 mg BYMOUTH DAILY PRN (Reason: Headache) lidocaine 5 % adhesive patch,medicated 1 patch topical DAILY Qty: 30 0RF Rx Instructions: leave on most painful area for up to 12 hrs Follow-up/Referrals: Blaise,MD Anibal [Primary Care Provider] - Time of Disposition: 11:07
--- NOTE | 2025-02-28 09:32 | ECG_ITS ---
Test Date: 2025-02-28 10:16:08 Measurements Intervals [place] Rate: 59 P: 23 PA: 128 QRS: 34 QRSD: 85 T: 32 QT: 390 QTc: 389 Interpretive Statements SINUS BRADYCARDIA BASELINE ARTIFACT- I, III, AVR, AVL, AVF, V4-V6 BORDERLINE ECG No previous ECG available for comparison Electronically Signed On 02-28-2025 10:59:29 CDT by Marcos Gonzales D.O.
--- OUTSIDE RECORDS SUMMARY | 2025-02-28 10:03 | XMS_ITS | Clinical Summary ---
[facility] Address [address] [facility] Attn: Epic Prelude ADT JOELLE BAIG [id number] Care Team Providers Care Territory Development Manager Name Role Phone Unavailable Primary Care Provider [...]
--- OUTSIDE RECORDS SUMMARY | 2025-02-28 10:03 | XMS_ITS | Referral Summary ---
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 Gender Identity Not on file Sexual Orientation Not on file Last Filed Vital Signs Vital Sign Reading Time Taken Comments Blood Pressure 110/76 10/21/2023 11:55 AM CDT Pulse 97 10/21/2023 11:55 AM CDT Temperature 37.2 C (98.9 F) 08/20/2017 4:20 PM AIR LIFT OPERATOR Respiratory Rate 18 10/21/2023 11:55 AM CDT [...] BLOOD, FECAL (FIT) Routine 09/02/2016 10:08 AM AIR LIFT OPERATOR from Last 3 Months or Most Recently Relevant to Health Maintenance Results * Occult blood, fecal non neoplasm screening (09/02/2016 10:08 AM AIR LIFT OPERATOR) Stool Occult Blood NEGATIVE NEGATIVE 09/02/2016 1:29 PM AIR LIFT OPERATOR [facility]OR[facility] RESULTS 09/02/2016 10:0 8 AM AIR LIFT OPERATOR 09/02/2016 10:08 AM AIR LIFT OPERATOR us Walter Dior MD LAB BODY FLUIDS AND STOOLS [facility] Final Result [facility] HISTORICAL RESULTS from Last 3 Months or Most Recently Relevant to Health Maintenance Insurance [facility] Care Teams Air Moving Technician Relationship Specialty Start Date End Date Anibal Welsh MD [address] [facility] DE[place] [address] PCP - General Family Medicine 08/21/23
--- OUTSIDE RECORDS SUMMARY | 2025-02-28 10:03 | XMS_ITS | Encounter Summary ---
Author Organization [facility] Address [address] [place] [address] Care Team Providers Care Race Relations Professor Name Role Phone Unavailable Primary Care Provider Unavailabl e Encounter Details Date Type Department Care Team (Late st Contact Info) Description 10/30/2011 Ancillary Orders [facility] [address] [place] [address] Antoinette Lew PA-C [address] [place] [address] Neck pain Social History Tobacco Use Types Packs/Day Years Used Date Smoking Tobacco: Never Assessed Sex and Gender Information Value Date Recorded Sex Assigned at Not on file Legal Sex Male 6:21 AM PREMIX CONCRETE BATCHER Gender Identity Not on file Sexual Orientation [...]
--- OUTSIDE RECORDS SUMMARY | 2025-02-28 10:03 | XMS_ITS | Clinical Summary ---
Author Organization [facility] Address [address] [place] [address] Phone Care Team Providers Care Capacity Planner Name Role Phone Unavailable Primary Care Provider Unavailabl e Social History Tobacco Use Types Packs/Day Years Used Date Smoking Tobacco: Never Assessed Sex and Gender Information Value Date Recorded Sex Assigned at Not on file Legal Sex Male 6:21 AM PARK INTERPRETIVE RANGER Gender Identity Not on file Sexual Orientation [...]
--- OUTSIDE RECORDS SUMMARY | 2025-02-28 10:03 | XMS_ITS | Clinical Summary ---
Author Organization [facility] Address [address] [place] [address] Care Team Providers Care Ribbon Weaver Name Role Phone Anibal Welsh MD Primary Care Provider [phone] Allergies No known active allergies Medications albuterol [...] Department Care Team Description 01/12/2025 Orders Only [facility] [address] [facility] [address] [place] [id number] Anibal Welsh MD Chronic neck pain (Primary [...] on file Legal Sex Male 7:44 AM COMMUNICATIONS DEPARTMENT HEAD Gender Identity Not on file Sexual Orientation Not on file Obstetrics History Last Filed Vital Signs Vital Sign Reading Time Taken Comments Blood Pressure 110/76 10/21/2023 11:55 AM CDT Pulse 97 10/21/2023 11:55 AM CDT Temperature 37.2 C (98.9 F) 08/20/2017 4:20 PM COMMUNICATIONS DEPARTMENT HEAD Respiratory Rate 18 10/21/2023 11:55 AM CDT [...] BLOOD, FECAL (FIT) Routine 09/02/2016 10:08 AM COMMUNICATIONS DEPARTMENT HEAD from Last 3 Months or Most Recently Relevant to Health Maintenance Results * Occult blood, fecal non neoplasm screening (09/02/2016 10:08 AM COMMUNICATIONS DEPARTMENT HEAD) Stool Occult Blood NEGATIVE NEGATIVE 09/02/2016 1:29 PM COMMUNICATIONS DEPARTMENT HEAD [facility] HISTORICAL RESULTS 09/02/2016 10:0 8 AM COMMUNICATIONS DEPARTMENT HEAD 09/02/2016 10:08 AM COMMUNICATIONS DEPARTMENT HEAD Walter Dior MD LAB BODY FLUIDS AND STOOLS [facility] TAYLOR Final Result [facility] HISTORICAL RESULTS from Last 3 Months or Most Recently Relevant to Health Maintenance Insurance [id number] [place] [address] [facility] Care Teams Ribbon Weaver Relationship Specialty Start Date End Date Anibal Welsh MD [address] [facility] DEPT [place] [address] PCP - General Family Medicine 08/21/23
[2025-02-28] MEDS: MECLIZINE HCL 25 MG TABLET PO (10:06)
[2025-02-28 10:21] LABS: Hematocrit 42.6 % (42.0-52.0); Hemoglobin 13.8 g/dL (14.0-18.0); Immature Granulocyte Percent A 0.8 % (0-0.5); Lymphocytes Absolute Auto 1.85 K/mm3 (0.9-3.2); Mean Corpuscular HGB Conc 32.4 g/dl (32-36); Mean Corpuscular Hemoglobin 30.2 pg (26-34); Mean Corpuscular Volume 93.2 fl (80-100); Nucleated Red Blood Cells Absolute Auto 0.000 K/mm3 (0.0-0.012); Nucleated Red Blood Cells Perc 0.0 % (0.0-0.2); Platelet Count Result 271 k/mm3 (150-375); Red Blood Count 4.57 M/mm3 (4.6-6.20); White Blood Count 8.8 K/mm3 (4.5-10.0)
[2025-02-28 10:26] VITALS: BP 131/79; PULSE 62; RESP 20; O2SAT 98
[2025-02-28 10:31] VITALS: BP 110/75; PULSE 62; RESP 19; O2SAT 99
[2025-02-28 10:38] LABS: Alanine Aminotransferase 21 U/L (6-50); Albumin Level 4.3 g/dL (3.5-5.1); Alkaline Phosphatase 59 U/L (38-126); Anion Gap 7 mmol/L (4-12); Aspartate Amino Transferase 29 U/L (17-59); Bilirubin,Total 0.6 mg/dL (0.2-1.3); Blood Urea Nitrogen 14 mg/dL (9-20); Calcium 9.4 mg/dL (8.4-10.2); Carbon Dioxide 26 mmol/L (22-30); Chloride 104 mmol/L (98-107); Estimated CRCL calculation 56 ml/min; Estimated Glomerular Filt Rate > 60; Glucose 91 mg/dL (65-110); Potassium 4.7 mmol/L (3.4-5.0); Sodium 137 mmol/L (137-145); Total Protein 7.1 g/dL (6.3-8.2)
[2025-02-28 10:50] LABS: Troponin I < 0.012 ng/mL (0.000-0.034)
== END 2025-02-28 11:20 | disposition home or self-care (01) ==
PROVIDERS: PCP Family Medicine
DX: R42 Dizziness and giddiness (principal); J32.9 Chronic sinusitis, unspecified; R00.1 Bradycardia, unspecified; K21.9 Gastro-esophageal reflux disease without esophagitis; Z86.73 Personal history of transient ischemic attack (TIA), and cerebral infarction without residual deficits; J45.909 Unspecified asthma, uncomplicated
CPT/HCPCS: 36415; 70450; 71046; 80053; 84484; 85025; 93005; 99284; A9270